=== PATIENT | male | born 1955 | race Caucasian/White ===

== ENCOUNTER 2019-12-07 10:59 | Outpatient (CLI) | payer MEDICARE, OTHER, SELFPAY ==
[2019-12-07 11:31] LABS: Hemoglobin A1C 7.4 % (<5.7)
[2019-12-07 11:34] LABS: Alanine Aminotransferase 18 U/L (4-50); Albumin Level 4.7 g/dL (3.5-5.1); Alkaline Phosphatase 94 U/L (38-126); Aspartate Amino Transferase 20 U/L (17-59); Bilirubin,Total 0.5 mg/dL (0.2-1.3); Blood Urea Nitrogen 16 mg/dL (9-20); Calcium 9.6 mg/dL (8.4-10.2); Carbon Dioxide 23 mmol/L (22-30); Chloride 95 mmol/L (98-107); Estimated Glomerular Filt Rate > 60; Glucose 332 mg/dL (75-110); Sodium 134 mmol/L (137-145)
== END 2019-12-07 11:00 | disposition home or self-care (01) ==
PROVIDERS: PCP Family Medicine; Visit Provider Family Medicine
DX: E11.9 Type 2 diabetes mellitus without complications (principal)
CPT/HCPCS: 36415; 80053; 83036

== ENCOUNTER 2020-04-19 09:52 | Outpatient (CLI) | payer MEDICARE, OTHER, SELFPAY ==
[2020-04-19 10:24] LABS: Hematocrit 47.1 % (42.0-52.0); Hemoglobin 15.4 g/dL (14.0-18.0); Mean Corpuscular HGB Conc 32.7 g/dl (32-36); Mean Corpuscular Hemoglobin 28.1 pg (26-34); Mean Corpuscular Volume 85.8 fl (80-100); Mean Platelet Volume 10.2 fl (7.4-10.4); Platelet Count Result 198 k/mm3 (150-375); Red Blood Count 5.49 M/mm3 (4.6-6.20); White Blood Count 7.3 K/mm3 (4.5-10.0)
[2020-04-19 10:44] LABS: Alanine Aminotransferase 17 U/L (4-50); Albumin Level 4.5 g/dL (3.5-5.1); Alkaline Phosphatase 80 U/L (38-126); Aspartate Amino Transferase 22 U/L (17-59); Bilirubin,Total 0.4 mg/dL (0.2-1.3); Blood Urea Nitrogen 17 mg/dL (9-20); Calcium 9.5 mg/dL (8.4-10.2); Carbon Dioxide 23 mmol/L (22-30); Chloride 102 mmol/L (98-107); Cholesterol 118 mg/dL (0-200); Estimated Glomerular Filt Rate > 60; Glucose 120 mg/dL (75-110); HDL Direct 37 mg/dL; Potassium 4.9 mmol/L (3.4-5.0); Sodium 136 mmol/L (137-145); Triglycerides 167 mg/dL (<150)
[2020-04-19 10:50] LABS: Hemoglobin A1C 7.7 % (<5.7)
[2020-04-19 11:05] LABS: LDL Cholesterol Direct 55 mg/dL
[2020-04-19 12:42] LABS: Add Urine Microscopic? YES; Appearance Urine Clear (Clear); Bilirubin Urine Negative (Negative); Blood Urine Negative (Negative); Color Urine Yellow (Yellow); Glucose Urine UA 3+ mg/dL (Negative); Ketones Urine Trace mg/dL (Negative); Leukocyte Esterase Ur Negative LEU/UL (NEGATIVE); Mucus Urine Rare /lpf; Nitrate Urine Negative (Negative); Protein Urine Negative (Negative); RBC Urine 0-2 /hpf (0-2); Squamous Epithelial Cell Urine Rare /hpf (Few); Urobilinogen Urine Negative mg/dL (<2.0); WBC Urine 0-3 /hpf (0-3)
[2020-04-19 12:51] LABS: Specific Grav Ur 1.036 (1.001-1.035)
[2020-04-19 13:12] LABS: Creatinine Urine 144.7 mg/dL
[2020-04-19 13:17] LABS: MALB Creatinine Ratio 7.1 mg/g (0-30); Microalbumin Urine Random 10.3 mg/L (0-16.7)
== END 2020-04-19 09:53 | disposition home or self-care (01) ==
PROVIDERS: PCP Family Medicine; Visit Provider Family Medicine
DX: E78.2 Mixed hyperlipidemia (principal); E11.9 Type 2 diabetes mellitus without complications; R35.1 Nocturia
CPT/HCPCS: 36415; 80053; 80061; 81001; 82043; 83036; 84153; 84443; 85027

== ENCOUNTER 2020-09-05 13:49 | Outpatient (CLI) | payer MEDICARE, OTHER, SELFPAY ==
[2020-09-05 14:59] LABS: Alanine Aminotransferase 28 U/L (4-50); Albumin Level 4.7 g/dL (3.5-5.1); Alkaline Phosphatase 75 U/L (38-126); Anion Gap 11 mmol/L (8-16); Aspartate Amino Transferase 28 U/L (17-59); Bilirubin,Total 0.6 mg/dL (0.2-1.3); Blood Urea Nitrogen 14 mg/dL (9-20); Calcium 9.8 mg/dL (8.4-10.2); Carbon Dioxide 28 mmol/L (22-30); Chloride 98 mmol/L (98-107); Estimated Glomerular Filt Rate > 60; Glucose 116 mg/dL (75-110); Potassium 4.3 mmol/L (3.4-5.0); Sodium 137 mmol/L (137-145)
[2020-09-05 15:03] LABS: Hemoglobin A1C 8.2 % (<5.7)
== END 2020-09-05 13:50 | disposition home or self-care (01) ==
PROVIDERS: PCP Family Medicine; Visit Provider Family Medicine
DX: E11.9 Type 2 diabetes mellitus without complications (principal)
CPT/HCPCS: 36415; 80053; 83036

== ENCOUNTER 2020-09-27 08:15 | Outpatient (CLI) | payer MEDICARE, OTHER, SELFPAY ==
--- NOTE | ~2020-09-27 | CT_ITS ---
EXAMINATION: CT lung screening DATE: 09/27/2020 09:14 INDICATION: History of tobacco dependence TECHNIQUE: Computed tomography (CT) of the chest was performed without intravenous contrast. The dose -length product was 269.82 mGy-cm. Automated exposure control and iterative reconstruction technique were employed. COMPARISON: CT dated 01/29/2019 FINDINGS: There is emphysema. There is a stable 3 mm right lower lobe nodule, image 90. No endobronch ial lesions. No pneumothorax. There is a 3 mm right middle lobe nodule, image 83. There is a 2-3 mm f issural nodule on the right, image 59. No significant interval change. Calcified granuloma of the nicole gula. There is atherosclerosis of the aorta and coronary arteries. Heart size normal. No significant pleural or pericardial effusion. The upper abdomen is unremarkable. IMPRESSION: 1. Lung-RADS category 2: Benign appearance or behavior. Continue annual screening with noncontrast lo w-dose chest CT in 12 months. Reviewed, dictated and finalized at location A. TRIC TRAIN DRIVER IMPRESSION: 1. Lung-RADS category 2: Benign appearance or behavior. Continue annual screeni ng with noncontrast low-dose chest CT in 12 months.
--- NOTE | ~2020-09-27 | US_ITS ---
EXAMINATION: US art doppler w press UE BI DATE: 09/27/2020 09:17 TIRE ROOM SUPERVISOR INDICATION: Localized swelling of the upper extremities TECHNIQUE: Segmental pressures and plethysmographic and Doppler waveforms of the upper extremity rachel sarah were obtained. COMPARISON: None. FINDINGS: Right and left brachial artery pressures of 117 mm Hg and 1:15 mm Hg, respectively, are concordant (n ormal difference <= 30 mmHg). The right finger:brachial systolic pressure ratio is 1.14 (normal > 0.8 ). Segmental pressure gradients are normal. Arterial Doppler waveforms are mixed biphasic and triphas ic (normal upstroke < 0.2 s). The left finger:brachial systolic pressure ratio is 1.05. Segmental pressure gradients are normal. Ar terial Doppler waveforms are biphasic. IMPRESSION: 1. Unremarkable upper extremity arterial Doppler. Reviewed, dictated and finalized at location A. ROOM SUPERVISOR
--- NOTE | ~2020-09-27 | US_ITS ---
EXAMINATION: US aorta [facility] DATE: 09/27/2020 09:16 MANAGER WORK INDICATION: Aortic aneurysm screening. High cholesterol. Past history of smoking. TECHNIQUE: Grayscale, color Doppler, and pulsed Doppler images of the aorta and common iliac arteries were obtained. COMPARISON: None. FINDINGS: The proximal aorta measures 2.6 cm greatest sagittal dimension. The mid aorta measures 2.7 cm greates t sagittal dimension. The distal aorta measures 3.1 cm greatest sagittal dimension. The right common internal iliac artery measures 1.1 cm. The left common iliac artery measures 1 cm. IMPRESSION: 1. Infrarenal abdominal aortic aneurysm measuring 3.1 cm greatest sagittal dimension. Reviewed, dictated and finalized at location A. GER WORK IMPRESSION: 1. Infrarenal abdominal aortic aneurysm measuring 3.1 cm greatest sagittal dime nsion.
== END 2020-09-27 08:16 | disposition home or self-care (01) ==
PROVIDERS: PCP Family Medicine; Visit Provider Family Medicine
DX: Z12.2 Encounter for screening for malignant neoplasm of respiratory organs (principal); Z87.891 Personal history of nicotine dependence; Z13.6 Encounter for screening for cardiovascular disorders; I71.4 Abdominal aortic aneurysm, without rupture; E78.00 Pure hypercholesterolemia, unspecified; M79.89 Other specified soft tissue disorders
CPT/HCPCS: 76706; 93923; G0297

== ENCOUNTER 2020-12-29 14:49 | Outpatient (CLI) | payer MEDICARE, OTHER, SELFPAY ==
[2020-12-29 15:47] LABS: Alanine Aminotransferase 25 U/L (4-50); Albumin Level 4.6 g/dL (3.5-5.1); Alkaline Phosphatase 73 U/L (38-126); Anion Gap 8 mmol/L (8-16); Aspartate Amino Transferase 27 U/L (17-59); Bilirubin,Total 0.5 mg/dL (0.2-1.3); Blood Urea Nitrogen 15 mg/dL (9-20); Calcium 9.6 mg/dL (8.4-10.2); Carbon Dioxide 29 mmol/L (22-30); Chloride 103 mmol/L (98-107); Estimated Glomerular Filt Rate > 60; Glucose 110 mg/dL (75-110); Potassium 3.8 mmol/L (3.4-5.0); Sodium 140 mmol/L (137-145)
[2020-12-29 15:56] LABS: Hemoglobin A1C 7.8 % (<5.7)
== END 2020-12-29 14:50 | disposition home or self-care (01) ==
PROVIDERS: PCP Family Medicine; Visit Provider Family Medicine
DX: E11.9 Type 2 diabetes mellitus without complications (principal)
CPT/HCPCS: 36415; 80053; 83036

== ENCOUNTER 2021-01-09 09:31 | Outpatient (CLI) | payer MEDICARE, OTHER, SELFPAY ==
--- NOTE | ~2021-01-09 | US_ITS ---
EXAMINATION: US carotid duplex BI DATE: 01/09/2021 10:00 INDICATION: Transient ischemic attack. TECHNIQUE: Grayscale, color Doppler, and pulsed Doppler images of the cervical carotid arteries were obtained. The degree of vessel stenosis is placed in one of the following categories: normal, <50%, 5 0-69%, >=70% but less than near-occlusion, near-occlusion, or total occlusion. Note that percent sten osis relative to normal distal artery lumen diameter is indirectly measured from velocity measurement s as described by Zenon, et al. Radiology 2003; 229:340-346. COMPARISON: Neck CT 08/28/2017 FINDINGS: RIGHT: The right common carotid artery (CCA) peak systolic velocity (PSV) is 82 cm/s. The right internal car otid artery (ICA) PSV is 52 cm/s. The right ICA end-diastolic velocity (EDV) is 17 cm/s. The right IC A/CCA PSV ratio is 0.6. Grayscale and color Doppler images yield an estimate of <50% diameter reducti on from plaque in the ICA. There is antegrade flow in the right vertebral artery. LEFT: The left CCA PSV is 79 cm/s. The left ICA PSV is 58 cm/s. The left ICA EDV is 16 cm/s. The left ICA/C CA PSV ratio is 0.7. Grayscale and color Doppler images yield an estimate of <50% diameter reduction from plaque in the ICA. There is antegrade flow in the left vertebral artery. IMPRESSION: 1. <50% stenosis in the right internal carotid artery. 2. <50% stenosis in the left internal carotid artery. Reviewed, dictated and finalized at location A. IC ORIGINS TEACHER
--- NOTE | ~2021-01-09 | CT_ITS ---
EXAMINATION: CT brain wo con DATE: 01/09/2021 10:00 INDICATION: Transient ischemic attack. TECHNIQUE: Computed tomography (CT) of the head was performed without intravenous contrast. The mA wa s adjusted according to patient size. Iterative reconstruction technique was employed. The dose-lengt h product was 605.33 mGy-cm. COMPARISON: None FINDINGS: There is no intracranial hemorrhage, acute infarction, or abnormal intracranial mass lesion . The ventricles are normal in size. There are likely changes of ocular lens replacement surgeries. T here is mucosal thickening in the paranasal sinuses. The mastoid air cells are normal. IMPRESSION: 1. Normal brain. Reviewed, dictated and finalized at location A. IC CUTTER IMPRESSION: 1. Normal brain.
== END 2021-01-09 09:32 | disposition home or self-care (01) ==
PROVIDERS: PCP Family Medicine; Visit Provider Family Medicine
DX: I65.23 Occlusion and stenosis of bilateral carotid arteries (principal)
CPT/HCPCS: 70450; 93880

== ENCOUNTER → 2021-02-06 00:21 | Outpatient (CLI) | payer MEDICARE, OTHER, SELFPAY ==
[2021-02-06 19:29] LABS: SARS-CoV-2 RNA PCR Negative
== END ==
PROVIDERS: PCP Family Medicine; Visit Provider Internal Medicine Cardiovascular Disease
DX: Z01.812 Encounter for preprocedural laboratory examination (principal); Z20.822 Contact with and (suspected) exposure to COVID-19
CPT/HCPCS: C9803; U0003; U0005

== ENCOUNTER 2021-02-09 01:29 | Day surgery (SDC) | payer MEDICARE, OTHER, SELFPAY ==
[2021-02-08 08:59] VITALS: BMI 31.6
[2021-02-09] VITALS (10 sets, daily range): BP systolic 107–147; BP diastolic 71–89; PULSE 80–92; RESP 11–17; TEMP 36.3–36.5; O2SAT 89–96; BMI 31.3
--- NOTE | 2021-02-09 07:59 | SUR.PREOP ---
Patient arrives ambulatory to [facility] accompanied by his , Heydi. PIV established and labs obtained and sent. VS obtained. Patient updated on plan of care and verbalizes understanding.
[2021-02-09 08:00] LABS: Basophils Absolute Auto 0.1 K/mm3 (0.0-0.1); Basophils Percent Auto 0.7 % (0.2-1.2); Eosinophils Absolute Auto 0.4 K/mm3 (0-0.3); Eosinophils Percent Auto 3.6 % (0-4.4); Hematocrit 50.7 % (42.0-52.0); Immature Granulocyte Absolute 0.07 K/mm3 (0.00-0.031); Immature Granulocyte Percent A 0.7 % (0-0.5); Lymphocytes Absolute Auto 1.68 K/mm3 (0.9-3.2); Lymphocytes Percent Auto 15.8 % (18.3-44.2); Mean Corpuscular HGB Conc 33.5 g/dl (32-36); Mean Corpuscular Hemoglobin 28.9 pg (26-34); Mean Corpuscular Volume 86.1 fl (80-100); Mean Platelet Volume 10.2 fl (7.4-10.4); Monocytes Absolute Auto 0.6 K/mm3 (0.1-0.6); Monocytes Percent Auto 5.2 % (2.6-8.5); Neutrophils Absolute Auto 7.9 K/mm3 (1.3-6.7); Platelet Count Result 198 k/mm3 (150-375); Red Blood Count 5.89 M/mm3 (4.6-6.20); Red Cell Distribution Width 14.3 % (11.5-14.5); White Blood Count 10.6 K/mm3 (4.5-10.0)
[2021-02-09 08:12] LABS: Anion Gap 14 mmol/L (8-16); Blood Urea Nitrogen 18 mg/dL (9-20); Carbon Dioxide 19 mmol/L (22-30); Chloride 104 mmol/L (98-107); Estimated CRCL calculation 93 ml/min; Estimated Glomerular Filt Rate > 60; Glucose 224 mg/dL (75-110); Potassium 4.3 mmol/L (3.4-5.0); Sodium 137 mmol/L (137-145)
[2021-02-09 08:14] LABS: INR 0.9; Prothrombin Time 12.7 Seconds (11.1-14.7)
--- NOTE | 2021-02-09 09:37 | WPDHPUPDATE1 ---
History and Physical Update Update Date/Time: 02/09/21 08:00 History and Physical has been reviewed, including an updated exam of the patient. There are NO changes in the patient's condition. Risks, benefits, and alternatives have been discussed and questions answered. Patient agrees to proceed with procedure.
--- NOTE | 2021-02-09 09:37 | WPDMODSED ---
Moderate Sedation Note-Pt Data Patient Data Allergies Allergy/AdvReac Type Severity Reaction Status Date / Time doxycycline [From Vibramycin] Allergy Unknown Rash Verified 02/09/21 08:03 erythromycin base Allergy Unknown Rash Verified 02/09/21 08:03 Home Medications Medication Instructions Recorded Confirmed Type albuterol sulfate 90 mcg/actuation 1 puff INHALATION Q4H PRN 12/22/19 02/08/21 History aerosol inhaler sildenafil 100 mg tablet 100 mg PO DAILY PRN 12/22/19 02/08/21 History exenatide microspheres 2 mg/0.85 2 mg SUB-Q Q7D #12 syr 05/10/20 02/08/21 Rx mL subcutaneous auto-injector fluticasone fur. 100 mcg-umeclid 1 inhalation INHALATION DAILY #90 05/10/20 02/08/21 Rx 62.5 mcg-vilant 25 mcg each inhalat.powder glipizide 10 mg tablet 10 mg PO DAILY #90 tablet 10/25/20 02/08/21 Rx empagliflozin 25 mg tablet 25 mg PO DAILY #90 tablet 11/01/20 02/08/21 Rx tamsulosin 0.4 mg capsule 0.4 mg PO DAILY #90 cap 11/01/20 02/08/21 Rx omeprazole 20 mg capsule,delayed 20 mg PO DAILY #90 cap 11/22/20 02/08/21 Rx release fluoxetine 40 mg capsule 40 mg PO QAM #90 cap 12/28/20 02/08/21 Rx rosuvastatin 20 mg tablet 20 mg PO DAILY #90 tablet 01/04/21 02/08/21 Rx metformin 500 mg tablet,extended 2,000 mg PO QPM #360 tablet 01/12/21 02/08/21 Rx release 24 hr ibuprofen 800 mg PO TID PRN 02/08/21 02/08/21 History Current Medications: Active Medications Sodium Chloride (Normal Saline Iv) 500 mls @ 100 mls/hr IV CONT .Q5H DAVID Sedation/Anesthesia: No previous sedation/anesthesia problems (including family history). REPLACED BY [facility] Past Medical History Medical History AAA (abdominal aortic aneurysm) Surgical History Surgical History History of sinus surgery x 3 Family History Family History Sibling Family history of diabetes mellitus in first degree relative Father Family history of throat cancer Social History Social History Smoking packs per day: 2.5 Smoking cigarettes per day: 50.0 Years smoked: 35 Smoking pack-years: 87.50 Smoking status: Former smoker Tobacco type: cigarettes Second hand tobacco smoke exposure: No Smoking end date: 11/04/05 Additional smoking assessment comments: stopped 12 years ago. Smoked 35 years. Alcohol intake: current Drinks per week: 1 Alcohol use details: Occasional alcohol use Substance use: current Substance use type: marijuana Other substance usage details: THC Living arrangements: with family Gender identity (if verbalized by the patient): Male Spiritual care concerns: No Mod Sed Physical Exam Physical Exam Pre Procedural Exam: Normal: Appearance, Eyes, Ears, Nose, Neck, Throat, Airway, Lungs, Heart Size, Heart Rate, Heart Rhythm, Neuro Exam, Abdomen, Liver, Kidneys, Spleen, Breasts, Genitalia, Extremities and Skin Hours since solid foods: 8 Hours since liquid intake: 8 Internal Medicine - PN: Obj Da Vital Signs Vital Signs: Vital Signs - 24 hr 02/09/21 07:45 Temperature 36.3 C L Pulse Rate 92 Respiratory Rate 17 Blood Pressure 132/87 Pulse Oximetry 96 Meds/Results Medications: Active Medications Generic Name Dose Route Start Last Admin Trade Name Freq PRN Reason Stop Dose Admin Sodium Chloride 500 mls @ 100 mls/hr 02/09/21 07:00 Normal Saline Iv IV CONT .Q5H DAVID Labs CBC & Chem 7: 02/09/21 07:37 02/09/21 07:37 Labs: Laboratory Results - last 24 hr 02/09/21 02/09/21 02/09/21 07:37 07:37 07:37 WBC 10.6 H RBC 5.89 Hgb 17.0 Hct 50.7 MCV 86.1 MCH 28.9 MCHC 33.5 RDW 14.3 Plt Count 198 MPV 10.2 Immature Gran % (Auto) 0.7 H Neut % (Auto) 74.0 H Lymph % (Auto) 15.8 L [place] % (Auto) 5.2 Eos % (Auto) 3.6 B
--- NOTE | 2021-02-09 09:38 | WPDCARDPROC ---
Cardiac Cath Procedure Note Date of procedure:: 02/09/21 Performing physician:: Savannah Ramirez MD Date of service 02/09/2021- Indication:: chest pain stress test Brief clinical history:: this 65-year-old patient past medical history diabetes, hypertension who experienced an episode of severe chest pain is felt to be myocardial infarction. Underwent stress testing that shows fixed defect in the inferior wall. Due to abnormality in stress test he was brought in here to define coronary anatomy. Procedure Procedure performed:: 1-Moderate sedation that started at 9:18 a.m.and ended at 9:33 a.m.using 3mg of Versed and 50mcg fentanyl. The registered nurse was ward doe. 2-Selective left and right coronary angiogram. 3-Left heart catheterization with measurement of LVEDP and measurement of gradient across aortic valve. 4- LV angiogram. 4-Right common femoral arterial angiogram. 5-Deployment of 6 Nauruan Angio-Seal. Sedation/Medication given:: Moderate sedation. Access site:: Right common femoral artery. Estimated blood loss:: 10cc Procedure note:: After informed consent patient was brought in to phlebotomist medical lab assistant with the was draped and prepped in usual manner. Moderate sedation was given and the right groin was infiltrated using 1% lidocaine. Five Nauruan sheath was obtained using micropuncture needle and the modified Seldinger technique. Selective left coronary angiogram was done using JL4 catheter with the tip of the catheter placed in the left main coronary artery. Selective right coronary angiogram was done using JR4 catheter with the tip of the catheter placed to the right coronary artery. After that 5 Nauruan pigtail catheter was advanced across the aortic valve into the left ventricle with measurement of LVEDP and measurement of gradient across aortic valve. LV angiogram was done as well. Right common femoral arterial angiogram was done. Deployment 6 [place]auruan Angio-Seal Findings:: 1- left coronary artery is a large artery that divides into large LAD, large circumflex artery. Left main distally has 20%. 2- left anterior descending artery is a large artery that runs and wraps around the apex. Has diffuse minimal irregularities. Small diagonal 1 branch that has minimal irregularities. 3- leftcircumflex artery is a large artery With minimal irregularities. Large OM1 a minimal irregularities. 4- right coronary artery is Very large artery with minimal irregularities 5- LVEDP was 15 mm Hg and no gradient across aortic valve. 6- LV angiogram shows normal LV systolic function. Normal ascending aorta. Estimated ejection fraction 65%. 6- opening arterial pressure was 128/70tand closing pressure was 110/70 7- right femoral artery angiogram shows no significant disease in the right common femoral artery. Conclusion:: minimal coronary irregularities. False-positive stress test. Assessment and Plan Additional Plan Continue aggressive risk factor modification for CAD.
--- NOTE | 2021-02-09 13:04 | SUR.PHASEII ---
LILY Kidd went through discharge paperwork with patient. Patient verbalized understanding. Patient was escorted off the unit by wheelchair.
== END 2021-02-09 13:04 | disposition home or self-care (01) ==
PROVIDERS: PCP Family Medicine; Visit Provider Internal Medicine Cardiovascular Disease
PROC: 4A023N7 Measurement of Cardiac Sampling and Pressure, Left Heart, Percutaneous Approach (ICD-10-PCS; CPT 93452; principal; 2021-02-09 09:00)
DX: R94.39 Abnormal result of other cardiovascular function study (principal); R07.9 Chest pain, unspecified; I25.10 Atherosclerotic heart disease of native coronary artery without angina pectoris; I71.4 Abdominal aortic aneurysm, without rupture; E11.9 Type 2 diabetes mellitus without complications; E78.2 Mixed hyperlipidemia; J44.9 Chronic obstructive pulmonary disease, unspecified; G47.30 Sleep apnea, unspecified; I25.2 Old myocardial infarction; F41.8 Other specified anxiety disorders; M19.90 Unspecified osteoarthritis, unspecified site; F12.90 Cannabis use, unspecified, uncomplicated; Z79.51 Long term (current) use of inhaled steroids; Z79.84 Long term (current) use of oral hypoglycemic drugs; Z87.891 Personal history of nicotine dependence
CPT/HCPCS: 36415; 80048; 85025; 85610; 93458; C1760; C1887; C1894; G0269; J1644; J2250; J3010; J7040

== ENCOUNTER 2021-05-03 15:24 | Outpatient (CLI) | payer MEDICARE, OTHER, SELFPAY ==
[2021-05-03 15:46] LABS: Hemoglobin 16.9 g/dL (14.0-18.0); Mean Corpuscular HGB Conc 33.1 g/dl (32-36); Mean Corpuscular Hemoglobin 28.7 pg (26-34); Mean Corpuscular Volume 86.7 fl (80-100); Mean Platelet Volume 10.5 fl (7.4-10.4); Platelet Count Result 199 k/mm3 (150-375); Red Blood Count 5.88 M/mm3 (4.6-6.20); Red Cell Distribution Width 13.8 % (11.5-14.5); White Blood Count 8.2 K/mm3 (4.5-10.0)
[2021-05-03 15:53] LABS: Add Urine Microscopic? YES; Appearance Urine Clear (Clear); Bilirubin Urine Negative (Negative); Blood Urine Negative (Negative); Color Urine Yellow (Yellow); Glucose Urine UA 3+ mg/dL (Negative); Ketones Urine 1+ mg/dL (Negative); Leukocyte Esterase Ur Negative LEU/UL (NEGATIVE); Mucus Urine Rare /lpf; Nitrate Urine Negative (Negative); Protein Urine Negative (Negative); RBC Urine 0-2 /hpf (0-2); Squamous Epithelial Cell Urine Rare /hpf (Few); Urobilinogen Urine Negative mg/dL (<2.0); WBC Urine 0-3 /hpf (0-3)
[2021-05-03 15:56] LABS: Specific Grav Ur 1.036 (1.001-1.035)
[2021-05-03 15:57] LABS: Alanine Aminotransferase 26 U/L (4-50); Albumin Level 4.8 g/dL (3.5-5.1); Alkaline Phosphatase 71 U/L (38-126); Anion Gap 10 mmol/L (8-16); Aspartate Amino Transferase 29 U/L (17-59); Bilirubin,Total 0.8 mg/dL (0.2-1.3); Blood Urea Nitrogen 13 mg/dL (9-20); Calcium 9.7 mg/dL (8.4-10.2); Carbon Dioxide 25 mmol/L (22-30); Chloride 104 mmol/L (98-107); Cholesterol 106 mg/dL (0-200); Estimated Glomerular Filt Rate > 60; Glucose 119 mg/dL (75-110); HDL Direct 36 mg/dL; Potassium 4.3 mmol/L (3.4-5.0); Sodium 139 mmol/L (137-145); Triglycerides 122 mg/dL (<150)
[2021-05-03 15:58] LABS: Hemoglobin A1C 8.4 % (<5.7)
[2021-05-03 16:08] LABS: LDL Cholesterol Direct 49 mg/dL
[2021-05-03 16:15] LABS: Creatinine Urine 100.1 mg/dL
[2021-05-03 16:19] LABS: MALB Creatinine Ratio 11.4 mg/g (0-30); Microalbumin Urine Random 11.4 mg/L (0-16.7)
[2021-05-03 16:27] LABS: Prostate Specific Antigen 0.7 ng/mL (< OR = 4.0)
== END 2021-05-03 15:25 | disposition home or self-care (01) ==
PROVIDERS: PCP Family Medicine; Visit Provider Family Medicine
DX: E11.42 Type 2 diabetes mellitus with diabetic polyneuropathy (principal); E11.65 Type 2 diabetes mellitus with hyperglycemia; E78.00 Pure hypercholesterolemia, unspecified; R35.1 Nocturia
CPT/HCPCS: 36415; 80053; 80061; 81001; 82043; 83036; 84153; 84443; 85027

== ENCOUNTER 2021-09-12 11:10 | Outpatient (CLI) | payer MEDICARE, OTHER, SELFPAY ==
[2021-09-12 12:13] LABS: Alanine Aminotransferase 31 U/L (4-50); Alkaline Phosphatase 73 U/L (38-126); Anion Gap 14 mmol/L (8-16); Aspartate Amino Transferase 39 U/L (17-59); Blood Urea Nitrogen 14 mg/dL (9-20); Carbon Dioxide 26 mmol/L (22-30); Chloride 101 mmol/L (98-107); Estimated Glomerular Filt Rate > 60; Glucose 149 mg/dL (65-110); Potassium 4.3 mmol/L (3.4-5.0); Sodium 141 mmol/L (137-145)
== END 2021-09-12 11:11 | disposition home or self-care (01) ==
LOC: ANHLAB 11:15
PROVIDERS: PCP Family Medicine; Visit Provider Family Medicine
DX: E11.42 Type 2 diabetes mellitus with diabetic polyneuropathy (principal); E11.65 Type 2 diabetes mellitus with hyperglycemia
CPT/HCPCS: 36415; 80053; 83036

== ENCOUNTER 2022-01-24 11:15 | Outpatient (CLI) | payer MEDICARE, OTHER, SELFPAY ==
[2022-01-24 12:31] LABS: Alanine Aminotransferase 14 U/L (4-50); Albumin Level 4.3 g/dL (3.5-5.1); Alkaline Phosphatase 103 U/L (38-126); Anion Gap 11 mmol/L (8-16); Aspartate Amino Transferase 22 U/L (17-59); Bilirubin,Total 0.5 mg/dL (0.2-1.3); Blood Urea Nitrogen 14 mg/dL (9-20); Calcium 9.1 mg/dL (8.4-10.2); Carbon Dioxide 25 mmol/L (22-30); Chloride 102 mmol/L (98-107); Estimated Glomerular Filt Rate > 60; Glucose 139 mg/dL (65-110); Potassium 4.1 mmol/L (3.4-5.0); Sodium 138 mmol/L (137-145)
[2022-01-24 12:34] LABS: Hemoglobin A1C 7.1 % (<5.7)
== END 2022-01-24 11:16 | disposition home or self-care (01) ==
LOC: ANHLAB 11:18
PROVIDERS: PCP Family Medicine; Visit Provider Family Medicine
DX: E11.65 Type 2 diabetes mellitus with hyperglycemia (principal)
CPT/HCPCS: 36415; 80053; 83036

== ENCOUNTER 2022-02-06 12:52 | Outpatient (CLI) | payer MEDICARE, OTHER, SELFPAY ==
--- NOTE | ~2022-02-06 | CT_ITS ---
EXAMINATION:CT lung screening DATE: 02/06/2022 13:15 INDICATION: Encounter for screening for malignant neoplasm of respiratory organs. Smoker who quit 12 years ago with 30 pack year history. TECHNIQUE: Computed tomography (CT) of the chest was performed without intravenous contrast. Automate d exposure control and iterative reconstruction technique were employed. The dose-length product (DLP ) was 363.09 mGy-cm. COMPARISON: Chest CT 09/27/2020 FINDINGS: There is severe emphysema. There is new widespread peripheral septal thickening in the lung s with new widespread groundglass opacities. There are new bandlike airspace opacities in the upper l obes with volume loss. There is a new 10 mm nodule in right upper lobe. No pleural effusion. The hear t size is stable. There are coronary artery calcifications. No pericardial effusion. There is mild me diastinal lymphadenopathy. A right paratracheal node measures 13 x 14 mm. There is mild thoracic spon dylosis. IMPRESSION: 1. Lung-RADS category 4B: Very suspicious. The diffuse nature of the worsened lung disease suggests p neumonia superimposed on severe emphysema. Noncontrast, low-dose chest CT is recommended in 1 month. Reviewed, dictated and finalized at location A. IMPRESSION: 1. Lung-RADS category 4B: Very suspicious. The diffuse nature of the worsened l caity disease suggests pneumonia superimposed on severe emphysema. Noncontrast, l ow-dose chest CT is recommended in 1 month.
== END 2022-02-06 12:53 | disposition home or self-care (01) ==
PROVIDERS: PCP Family Medicine; Visit Provider Family Medicine
DX: Z12.2 Encounter for screening for malignant neoplasm of respiratory organs (principal); Z87.891 Personal history of nicotine dependence
CPT/HCPCS: 71271

== ENCOUNTER 2022-02-12 16:52 | Inpatient (IN) | payer MEDICARE, OTHER, SELFPAY ==
[2022-02-12] VITALS (12 sets, daily range): BP systolic 103–121; BP diastolic 52–79; PULSE 82–90; RESP 14–20; TEMP 36.2–36.3; O2SAT 85–96; BMI 31.2
--- NOTE | ~2022-02-12 | XR_ITS ---
EXAMINATION: XR chest 2V DATE: 02/12/2022 17:23 INDICATION: Shortness of breath. TECHNIQUE: Frontal and lateral views of the chest were obtained. COMPARISON: Chest CT 02/06/2022, 09/27/20 FINDINGS: There are lucencies in the lungs, consistent with emphysema. There are widespread reticular opacities in the lungs with a peripheral predominance. There is architectural distortion in the uppe r lobes. There is a subcentimeter nodule in left upper lobe. No pleural effusion or pneumothorax. The heart size is normal. IMPRESSION: 1. Diffuse lung disease with worsening from 09/27/2020, which may be pneumonia, pulmonary edema, and/ or worsened chronic lung disease superimposed on emphysema. Reviewed, dictated and finalized at location A. IMPRESSION: 1. Diffuse lung disease with worsening from 09/27/2020, which may be pneumonia, pulmonary edema, and/or worsened chronic lung disease superimposed on emphysem a.
--- NOTE | 2022-02-12 17:16 | ECG_ITS ---
Measurements Intervals Philip Rate: 90 P: 48 FL: 158 QRS: 15 QRSD: 104 T: 6 QT: 412 QTc: 505 Interpretive Statements SINUS RHYTHM ST AND T-WAVE ABNORMALITY, CONSIDER ANTERIOR ISCHEMIA [-0.1+ mV T WAVE IN V3/V4] ABNORMAL ECG NO PREVIOUS ECG AVAILABLE FOR COMPARISON Electronically Signed On 02-13-2022 17:59:29 CDT by Dameon Reese M.D.
--- NOTE | 2022-02-12 17:37 | ED.SOB ---
HPI - SOB/Dyspnea General Chief Complaint: Shortness of Breath/Dyspnea Stated Complaint: low o2 sats Time Seen by Provider: 02/12/22 17:19 History of Present Illness HPI Narrative: Patient is a 66-year-old male with a history of COPD, ELISE, DM, hx of AAA, who presents to the emergency department for 2 months of exertional dyspnea, productive cough, with some low oxygen saturation noted at home with the past 3 days. He has no home O2 requirement historically, but purchased a pulse oximeter after he was found to be hypoxic at his primary care physician office. His lowest reading was in the 70s when he was exerting himself, and at rest it was in the mid-high 80s. Patient recently completed a course of azithromycin and is still taking a course of Augmentin for suspected pneumonia seen on a low-dose CT scan last week. Has not been taking his rescue inhaler, but has been compliant with Trelegy. He denies any fevers, chest pain, leg swelling, hemoptysis, orthopnea, nighttime awakenings. Related Data Home Medications Medication Instructions Recorded Confirmed [id number] 1 ea INHALATION DAILY 02/12/22 02/12/22 [Trelegy Ellipta] Allergies Allergy/AdvReac Type Severity Reaction Status Date / Time doxycycline [From Vibramycin] Allergy Unknown Rash Verified 02/12/22 17:17 erythromycin base Allergy Unknown Rash Verified 02/12/22 17:17 Review of Systems Review of Systems: Gen.: Denies fevers or chills Eyes: Denies eye pain or visual change ENT: Denies congestion Respiratory: Reports shortness of breath and cough CV: Denies chest pain or palpitations GI: Denies abdominal pain nausea, emesis or diarrhea denies burning, urgency, frequency or hematuria Musculoskeletal: Denies back pain or muscle pain Neuro: Denies numbness, tingling, weakness or focal weakness Skin: Denies rash. Except as documented, all other systems reviewed and negative All systems reviewed & are unremarkable except as noted in HPI and below PMFSH Past Medical History Medical History AAA (abdominal aortic aneurysm) BPH loc w urin obs/LUTS Surgical History Surgical History History of sinus surgery x 3 Family History Family History Sibling Family history of diabetes mellitus in first degree relative Father Family history of throat cancer Social History Social History Smoking packs per day: 2.5 Smoking cigarettes per day: 50.0 Years smoked: 35 Smoking pack-years: 87.50 Smoking status: Former smoker Tobacco type: cigarettes Second hand tobacco smoke exposure: No Smoking end date: 12/17/07 Additional smoking assessment comments: stopped 12 years ago. Smoked 35 years. Alcohol intake: current Drinks per week: 1 Alcohol use details: Occasional alcohol use Substance use: never Substance use type: marijuana Other substance usage details: THC Gender identity (if verbalized by the patient): Male Spiritual care concerns: No Exam Narrative: APPEARANCE: Well appearing, no pain or distress, well-nourished. Head normocephalic and atraumatic. EYES: PERRLA/EOMI, conjunctivae clear NOSE: No nasal drainage EARS: External ear normal in appearance THROAT: Oropharynx is clear. Mucous membranes are moist. NECK: Supple. No adenopathy, no masses. RESPIRATORY: Expiratory wheezes noted in bilateral upper lobes. Airway patent, respirations nonlabored. CARDIOVASCULAR: Regular rate and rhythm without murmurs, rubs, or gallops. ABDOMINAL: Normoactive bowel sounds. Soft, nontender, nondistended. No rebound tenderness or guarding. MUSCULOSKELETAL: Extremities are warm and well-perfused. Moves all extremities well. No edema. NEURO: Normal speech. No focal neurologic deficits. SKIN::
[2022-02-12] MEDS: ALBUTEROL SULFATE NEB 2.5 MG/0.5 ML INH INHALATION ×2 (17:53→23:03)
[2022-02-12 18:02] LABS: Basophils Absolute Auto 0.1 K/mm3 (0.0-0.1); Basophils Percent Auto 0.7 % (0.2-1.2); Eosinophils Absolute Auto 0.2 K/mm3 (0-0.3); Eosinophils Percent Auto 2.2 % (0-4.4); Hematocrit 46.2 % (42.0-52.0); Hemoglobin 14.4 g/dL (14.0-18.0); Immature Granulocyte Absolute 0.08 K/mm3 (0.00-0.031); Immature Granulocyte Percent A 0.7 % (0-0.5); Lymphocytes Absolute Auto 1.09 K/mm3 (0.9-3.2); Mean Corpuscular HGB Conc 31.2 g/dl (32-36); Mean Corpuscular Hemoglobin 27.7 pg (26-34); Mean Corpuscular Volume 88.8 fl (80-100); Mean Platelet Volume 9.8 fl (7.4-10.4); Monocytes Absolute Auto 0.6 K/mm3 (0.1-0.6); Monocytes Percent Auto 5.7 % (2.6-8.5); Neutrophils Absolute Auto 8.8 K/mm3 (1.3-6.7); Neutrophils Percent Auto 80.7 % (45.5-73.1); Platelet Count Result 286 k/mm3 (150-375); Red Cell Distribution Width 14.6 % (11.5-14.5); White Blood Count 10.9 K/mm3 (4.5-10.0)
[2022-02-12 18:15] LABS: Albumin Level 4.1 g/dL (3.5-5.1); Anion Gap 11 mmol/L (8-16); Bilirubin,Total 0.7 mg/dL (0.2-1.3); Blood Urea Nitrogen 14 mg/dL (9-20); Calcium 8.9 mg/dL (8.4-10.2); Carbon Dioxide 24 mmol/L (22-30); Chloride 102 mmol/L (98-107); Estimated CRCL calculation 81 ml/min; Estimated Glomerular Filt Rate > 60; Glucose 127 mg/dL (65-110); Potassium 4.1 mmol/L (3.4-5.0); Sodium 137 mmol/L (137-145)
[2022-02-12 18:21] LABS: NT Pro B Type Natriuretic Pept 441 pg/mL (5-100)
[2022-02-12 18:34] LABS: Alanine Aminotransferase 12 U/L (4-50); Alkaline Phosphatase 95 U/L (38-126); Aspartate Amino Transferase 29 U/L (17-59)
[2022-02-12 18:56] LABS: Troponin I < 0.012 ng/mL (0.000-0.034)
--- NOTE | 2022-02-12 19:32 | PM.IMHP ---
H&P: HPI History of Present Illness Date/Time: 02/12/22 19:32 Chief Complaint: Shortness of breath. Narrative: This is a 66-year-old male with past medical history significant for COPD/emphysema patient is a former smoker, used to smoke 2-1/2 packs of cigarettes for 35 years,, dyslipidemia, benign prostatic hyperplasia, GERD, type 2 diabetes mellitus. Patient presents to the emergency room due to worsening shortness of breath now present with minimal exertion, this has been going on for the last month or so patient did a course of Z-Matthew and just is about to conclude a course of amoxicillin but is still having significant shortness of breath, patient has had also productive cough of yellowish to greenish sputum, patient denies any fevers, rigors or chills, patient has not been able to eat well due to shortness of breath, denies any leg swelling or ankle swelling or pedal swelling no PND or orthopnea, no chest pain, no dizziness no syncope no near-syncope. Patient was saturating in the 70% at home with pulse oximeter home device upon arrival to emergency room patient require 4 L of oxygen by nasal cannula. Preliminary workup was significant for CT of the chest with severe emphysema and superimposed pneumonia. Patient is being admitted for further evaluation, management and treatment. Review of Systems Review of Systems: Shortness of breath, productive cough with sputum yellowish to greenish. Constitutional: Constitutional: Denies chills, Denies excessive sweating, Denies fever(s), Denies malaise, Denies night sweats and Denies weakness Eyes: Eyes: Denies change in vision ENT: Denies dysphagia, Denies nasal congestion, Denies nasal discharge and Denies nasal obstruction Cardiovascular: Cardiovascular: Denies pedal edema, Denies edema, Denies leg edema, Denies lightheadedness, Denies radiating jaw, neck or arm pain and Denies palpitations Respiratory: Respiratory: Reports cough, Reports excessive phlegm production and Reports dyspnea Comments: Yellowish to greenish patient states that is his usual. Gastrointestinal: Gastrointestinal: Denies abdominal pain, Denies dyspepsia, Denies heartburn, Denies diarrhea, Denies nausea and Denies vomiting Genitourinary: Genitourinary: Denies dysuria Musculoskeletal: Musculoskeletal: Denies back pain, Denies arthralgias and Denies joint swelling Integumentary/Breasts: Skin/Breast: Denies rash Neurologic: Denies focal weakness and Denies Sensory deficit (Neuro) Psychiatric: Psychiatric: Reports no additional psychiatric complaints and Reports as per HPI Endocrine: Endocrine: Denies cold intolerance, Denies heat intolerance, Denies polydipsia and Denies palpitations Hematologic/Lymphatic: Hematologic/Lymphatic: Reports no additional hematologic/lymphatic complaints and Reports as per HPI Allergic/Immunologic: Allergic/Immunologic: Reports no additional allergic/immunologic complaints and Reports as per HPI PMFSH Past Medical History Medical History AAA (abdominal aortic aneurysm) BPH loc w urin obs/LUTS Surgical History Surgical History History of sinus surgery x 3 Family History Family History Sibling Family history of diabetes mellitus in first degree relative Father Family history of throat cancer Social History Social History Smoking packs per day: 2.5 Smoking cigarettes per day: 50.0 Years smoked: 35 Smoking pack-years: 87.50 Smoking status: Former smoker Tobacco type: cigarettes Second hand tobacco smoke exposure: No Smoking end date: 12/17/07 Additional smoking assessment comments: stopped 12 years ago. Smoked 35 years. Alcohol intake: current Drinks per week: 1 Alcohol use details: Occasional alcohol use Substance use: never
[2022-02-12] MEDS: methylPREDNISolone SOD SUCC 125 MG VIAL 60 MG IV PUSH (19:41)
[2022-02-12 19:52] LABS: Alveolar/Arterial O2 Gradient 147.7 mmHg; Base Excess ABG -0.3 mEq/l (+/-2.0); Fractional Inspired Oxygen 35 %; HCO3 ABG 22.3 mEq/l (22.0-26.0); Oxygen Content ABG 19.2 %vol (16.0-22.0); Oxygen Saturation ABG 94.3 % (95.0-100.0); Oxyhemoglobin 91.3 % THb (90.0-100.0); PCO2 ABG 31.3 mmHg (35.0-45.0); PO2 ABG 65.5 mmHg (80.0-100.0); PO2 FiO2 Ratio Arterial Blood 1.87 %; pH ABG 7.471 (7.350-7.450)
[2022-02-12 19:53] LABS: Device NASAL CANNULA; Liters per Minute 3.5 LPM; Modified Allen's Test Pass; Site Drawn LEFT RADIAL
[2022-02-12 20:59] LABS: Influenza A QL RT-PCR Negative (Negative); Influenza B QL RT-PCR Negative (Negative); SARS-CoV-2 RNA PCR Negative
--- NOTE | 2022-02-12 22:17 | ADMGEN ---
This patient, Rashel Camilo, was admitted to 3 [facility] Surg Room 311-01. Patient/family oriented to hospital policies and general routines including ID bracelet, bed and alarms, visiting hours, pain management, procedures, bathroom and other care routines, personal items, smoking policy, room service/diet, and visiting hours. Information on how to activate the Rapid Response Team has been discussed. Patient/Family are encouraged to report perceived risks to care and to ask questions if they do not understand what they are told or what they should do.
[2022-02-12] MEDS: IPRATROPIUM BR 0.02% INH SOLN 0.5 MG/2.5 ML VIAL INHALATION (23:02)
[2022-02-12 23:13] LABS: NT Pro B Type Natriuretic Pept 435 pg/mL (5-100)
--- NOTE | 2022-02-12 23:13 | PCRCNOTE ---
Pt is ordered CPAP for home but states that he does not wear it due to dry mouth, despite increasing humidity. Pt states that he does not wish to use one while here. Pt is ordered Q4H nebulizer treatments. When receiving his 00:00 treatment, pt asked not to be woken up for the 04:00 treatment. Pt was advised to let nurse know if he changes his mind.
[2022-02-13] VITALS (20 sets, daily range): BP systolic 102–126; BP diastolic 58–75; PULSE 62–111; RESP 16–21; TEMP 35.8–37; O2SAT 92–99
--- NOTE | 2022-02-13 | ECHO_ITS ---
Patient Info Name: Rashel Camilo Age: 66 years : 1955 Gender: Male Ht: 70 in Wt: 218 lbs BSA: 2.24 m2 HR: 90 bpm BP: 106 / 69 mmHg Heart Rhythm: Sinus Rhythm Technical Quality: Fair Exam Date: 02/13/2022 9:07 AM Exam Location: [facility] Patient Status: Inpatient Admit Date: 02/12/2022 Staff Ordering Physician: Jazmine Moreno MD Welding Machine Setter: Rhianna Ascencio RDCS Attending Provider: Jazmine Moreno MD Referring Physician: Josh NELSON; Exam Type: CA echo doppler color flow Study Info Indications - sob Complete two-dimensional, color flow and Doppler transthoracic echocardiogram is performed. Summary 1. Complete two-dimensional, color flow and Doppler transthoracic echocardiogram is performed. 2. Left ventricular chamber dimension is normal. 3. Left ventricular systolic function is normal, estimated at 65-70%. 4. There is no increased left ventricular wall thickness. 5. The left ventricular diastolic function is grade I diastolic dysfunction. 6. The basal anteroseptal, and mid anteroseptal are hypokinetic. 7. Right ventricular chamber dimension is mildly enlarged. 8. Right ventricular systolic function is reduced. 9. RV apex is severely hypokinetic. 10. Left atrial chamber dimension is mildly enlarged. 11. There is mild tricuspid valve regurgitation. 12. There is mild pulmonic regurgitation. Left Ventricle Left ventricular chamber dimension is normal. Left ventricular systolic function is normal, estimated at 65-70%. There is no increased left ventricular wall thickness. The left ventricular diastolic function is grade I diastolic dysfunction. The basal anteroseptal, and mid anteroseptal are hypokinetic. All other aguirre appear normal. Right Ventricle Right ventricular chamber dimension is mildly enlarged. Right ventricular systolic function is reduced. RV apex is severely hypokinetic. Left Atria Left atrial chamber dimension is mildly enlarged. Right Atria Right atrial chamber dimension is normal. Atrial Septum Intact interatrial septum visualized by color flow imaging. Aortic Valve The aortic valve is trileaflet. There is no aortic valve sclerosis. There is no aortic valve stenosis. There is trace aortic valve regurgitation. Pulmonic Valve The pulmonic valve is normal. There is no pulmonic valve stenosis. There is mild pulmonic regurgitation. Mitral Valve The mitral valve has normal leaflets. There is no mitral valve stenosis. There is trace mitral valve regurgitation. Tricuspid Valve The tricuspid valve leaflets are normal. There is no significant tricuspid valve stenosis. There is mild tricuspid valve regurgitation. No pulmonary hypertension, estimated pulmonary arterial systolic pressure is 29 mmHg. Pericardium/Pleural The pericardium appears normal. There is no pericardial effusion. Inferior Vena Cava Normal inferior vena cava with >50% collapse upon inspiration consistent with elevated right atrial pressure, 10 mmHg. Aorta The aortic root size at the sinus of Valsalva is borderline dilated. Left Ventricular Outflow Tract Name Value Normal LVOT 2D LVOT Diameter 2.5 cm LVOT
[2022-02-13 07:37] LABS: Glucose Point of Care 134 mg/dl (65-105)
[2022-02-13] MEDS: predniSONE 20 MG TABLET 40 MG PO (08:13)
[2022-02-13] MEDS: TAMSULOSIN HCL 0.4 MG CAPSULE 0.8 MG PO (08:13)
[2022-02-13] MEDS: PANTOPRAZOLE 40 MG TABLET PO (08:14)
[2022-02-13] MEDS: FLUoxetine HCL 20 MG CAPSULE 40 MG PO (08:14)
[2022-02-13] MEDS: ROSUVASTATIN 10 MG TABLET 20 MG PO (08:14)
[2022-02-13] MEDS: ALBUTEROL SULFATE NEB 2.5 MG/0.5 ML INH INHALATION ×4 (08:45→23:20)
[2022-02-13] MEDS: IPRATROPIUM BR 0.02% INH SOLN 0.5 MG/2.5 ML VIAL INHALATION ×4 (08:45→23:20)
[2022-02-13] MEDS: FLUTICASONE/UMECLIDIN/VILANTER 100-62.5-25 MCG ELLIPTA 1 PUFF INHALATION (08:45)
[2022-02-13] MEDS: PERFLUTREN LIPID MICROSPHERES 1.5 ML VIAL DILUTED TO 10 ML TOTAL VOLUME IV PUSH (09:33)
--- NOTE | 2022-02-13 09:33 | IVDEFINITY ---
Prior to administration of IV Definity the patient was educated on the risks and benefits of the imaging enhancing agent including potential adverse side effects. The patient verbalized understanding. Allergies were verified. No exclusion criteria were identified and at least one of the following inclusion criteria were met: 1) physician request, 2) patient technically difficult to image (per the [place] [employer] guidelines of two or more segments not discernable within the apical view), or 3) questionable left ventricular function. ?
[2022-02-13] MEDS: ENOXAPARIN 40 MG/0.4 ML SYRINGE SUB-Q (10:14)
[2022-02-13 11:30] LABS: Glucose Point of Care 269 mg/dl (65-105)
[2022-02-13] MEDS: INSULIN ASPART (*BKC) 100 UNITS/ML SUB-Q ×3 (12:32→17:16)
--- NOTE | 2022-02-13 14:42 | PM.IMPN ---
Progress Note: A&P Assessment and Plan (1) Community acquired pneumonia: Code(s): J18.9 - Pneumonia, unspecified organism Status: Acute Assessment and Plan: Patient failed outpatient therapy with Z-Matthew and amoxicillin Started on levofloxacin Cultures in progress 02/14/2022 interval history: patient with long history of smoking presented with shortness of breath is found to have exacerbate Thatch of COPD patient was started on methylprednisone and DuoNeb patient's symptoms are improving and and states feeling much better compared to when he arrived, will taper down to prednisone 40 mg q.day, chest x-ray is also concerning for pneumonia patient started on levofloxacin to further evaluate will do the cardiac echo and further recommendation to follow. (2) Acute respiratory failure with hypoxia: Code(s): J96.01 - Acute respiratory failure with hypoxia Status: Acute Assessment and Plan: Currently on supplemental oxygen 4 L by nasal cannula try and keep oxygen saturation in between 90-94%. ABG reviewed Continue to monitor (3) COPD exacerbation: Code(s): J44.1 - Chronic obstructive pulmonary disease with (acute) exacerbation Status: Acute Assessment and Plan: scheduled breathing treatments Pulmonology consult CT chest reviewed Chest x-ray reviewed (4) ELISE (obstructive sleep apnea): Code(s): G47.33 - Obstructive sleep apnea (adult) (pediatric) Status: Acute Assessment and Plan: Currently on supplemental oxygen (5) AAA (abdominal aortic aneurysm): Code(s): I71.4 - Abdominal aortic aneurysm, without rupture Status: Acute Assessment and Plan: Follow-up in outpatient setting (6) GERD (gastroesophageal reflux disease): Code(s): K21.9 - Gastro-esophageal reflux disease without esophagitis Status: Acute Assessment and Plan: PPI daily (7) Type 2 diabetes mellitus with hyperglycemia: Code(s): E11.65 - Type 2 diabetes mellitus with hyperglycemia Status: Acute Assessment and Plan: Holding metformin Holding empagliflozin Holding metformin Holding glipizide Insulin sliding scale as needed Accu-Cheks AC and HS (8) Major depressive disorder, single episode, unspecified: Code(s): F32.9 - Major depressive disorder, single episode, unspecified Status: Acute Assessment and Plan: Stable Continue fluoxetine Subjective Date/time seen: 02/13/22 14:42 Chief Complaint: Shortness of breath. Narrative: This is a 66-year-old male with past medical history significant for COPD/emphysema patient is a former smoker, used to smoke 2-1/2 packs of cigarettes for 35 years,, dyslipidemia, benign prostatic hyperplasia, GERD, type 2 diabetes mellitus. Patient presents to the emergency room due to worsening shortness of breath now present with minimal exertion, this has been going on for the last month or so patient did a course of Z-Matthew and just is about to conclude a course of amoxicillin but is still having significant shortness of breath, patient has had also productive cough of yellowish to greenish sputum, patient denies any fevers, rigors or chills, patient has not been able to eat well due to shortness of breath, denies any leg swelling or ankle swelling or pedal swelling no PND or orthopnea, no chest pain, no dizziness no syncope no near-syncope. Patient was saturating in the 70% at home with pulse oximeter home device upon arrival to emergency room patient require 4 L of oxygen by nasal cannula. Preliminary workup was significant for CT of the chest with severe emphysema and superimposed pneumonia. Patient is being admitted for further evaluation, management and treatment. 02/14/2022 interval history: patient with long history of smoking presented with shortness of breath is found to have exacerbate Thatch of COPD patient was started on methylprednisone and DuoNeb patient's symptoms are improving and and sta
[2022-02-13 16:35] LABS: Glucose Point of Care 481 mg/dl (65-105)
[2022-02-13] MEDS: INSULIN GLARGINE (*BKC) 100 UNITS/ML 30 UNITS SUB-Q (17:16)
--- NOTE | 2022-02-13 18:49 | PM.CNPUL ---
Assessment and Plan Assessment and plan (1) Community acquired pneumonia: Code(s): J18.9 - Pneumonia, unspecified organism Status: Acute Assessment and Plan: New infiltrates on chest CT February 06, with cough, shortness of breath, mild increase in secretions over his baseline. His symptoms were worsening, and his shortness of breath prevented him from vaping for the last 12 days. He is on empiric antibiotics for community acquired pneumonia, can transition to oral meds such as cefdinir 300 mg bid to complete a 7 day course. He will need walk study before discharge, and will have more assessment of his COPD and hypoxemia in the clinic. He has used O2 in the past. Urine antigens for Legionella &, pneumococcus have been ordered. (2) Acute hypoxemic respiratory failure: Code(s): J96.01 - Acute respiratory failure with hypoxia Status: Acute Assessment and Plan: Saturation decreased to 78% this admission; needed O2 at home, may need to continue to use after discharge. He has severe emphysema on chest CT. Alpha-1 antitrypsin level and phenotype Will need Walk Study before going home; anticipate he may need O2 at home. 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 He was apying for the use of it, and was not sure that it was helping him. (3) COPD (chronic obstructive pulmonary disease): Qualifiers: COPD type: emphysema Emphysema type: unspecified Qualified Code(s): J43.9 - Emphysema, unspecified Code(s): J44.9 - Chronic obstructive pulmonary disease, unspecified Status: Acute Assessment and Plan: on Trelegy; he has inspiratory capacity to use this inhaler; will continue this and his PRN albuterol may be a candidate for cardiopulmonary rehab after discharge He quit vaping 12 days ago; was using THC, no longer nicotine (4) History of tobacco abuse: Code(s): Z87.891 - Personal history of nicotine dependence Status: Acute Assessment and Plan: quit 15 years ago, was up to 2.5 ppd (5) Enlarged RV (right ventricle): Code(s): I51.7 - Cardiomegaly Status: Acute Assessment and Plan: Enlarged right ventricle on echo today No pulmonary hypertension Appears to have RV dysfunction with a history of ELISE in the past and CPAP, he will need to have further f/u regarding sleep as an outpatient When he is stable, split night study History of Present Illness History of Present Illness Consult date: 02/14/22 Chief complaint: COPD Exacerbation Narrative: Patient seen February 13, 2022, about 8:00 pm NEW: Rashel Camilo is a 66 year old man with COPD on Trelegy for 2 years says that he has had increased shortness of breath for 4 to [address]. [address] Green Wed February [address] showing severe emphysema, a new RUL nodule and markings c/w pneumonia. The patient bought an oximeter to use at home, found that he was desaturating to 79% with exertion with slow recovery. He decided to come to the hospital yesterday when his saturation was too low for too long, was admitted February 12. He has shortness of breath with cleaning cat box -> bending over, lifting and emptying the box. He has wheezing only when he is sick. He has pneumonia now confirmed by CT. He normally does not have recurrent infections. His last pneumonia was in his twenties. He was on O[facility] several years ago[facility] He used it for about 6 months, decided that it was not helping much so he turned the concentrator in. He was on CPAP in the past stopped using. He pulled it out i
[2022-02-13 21:25] LABS: Glucose Point of Care 289 mg/dl (65-105)
[2022-02-13] MEDS: INSULIN GLARGINE (*BKC) 100 UNITS/ML 25 UNITS SUB-Q (21:26)
[2022-02-14] VITALS (20 sets, daily range): BP systolic 107–116; BP diastolic 58–69; PULSE 75–95; RESP 16–20; TEMP 36.1–36.6; O2SAT 89–96
[2022-02-14 07:46] LABS: Glucose Point of Care 138 mg/dl (65-105)
[2022-02-14] MEDS: TAMSULOSIN HCL 0.4 MG CAPSULE 0.8 MG PO (08:45)
[2022-02-14] MEDS: predniSONE 20 MG TABLET 40 MG PO (08:46)
[2022-02-14] MEDS: ROSUVASTATIN 10 MG TABLET 20 MG PO (08:46)
[2022-02-14] MEDS: PANTOPRAZOLE 40 MG TABLET PO (08:46)
[2022-02-14] MEDS: ENOXAPARIN 40 MG/0.4 ML SYRINGE SUB-Q (08:46)
[2022-02-14] MEDS: INSULIN ASPART (*BKC) 100 UNITS/ML SUB-Q ×3 (08:48→17:18)
[2022-02-14] MEDS: FLUoxetine HCL 20 MG CAPSULE 40 MG PO (08:51)
[2022-02-14] MEDS: IPRATROPIUM BR 0.02% INH SOLN 0.5 MG/2.5 ML VIAL INHALATION ×3 (09:35→19:33)
[2022-02-14] MEDS: FLUTICASONE/UMECLIDIN/VILANTER 100-62.5-25 MCG ELLIPTA 1 PUFF INHALATION (09:35)
[2022-02-14] MEDS: ALBUTEROL SULFATE NEB 2.5 MG/0.5 ML INH INHALATION ×3 (09:35→19:33)
[2022-02-14 11:35] LABS: Glucose Point of Care 151 mg/dl (65-105)
--- NOTE | 2022-02-14 14:04 | PCRCNOTE ---
Window of time for administration has passed. See next scheduled administration.
--- NOTE | 2022-02-14 16:07 | PM.IMPN ---
Progress Note: A&P Assessment and Plan (1) Community acquired pneumonia: Code(s): J18.9 - Pneumonia, unspecified organism Status: Acute Assessment and Plan: Patient failed outpatient therapy with Z-Matthew and amoxicillin Started on levofloxacin Cultures in progress 02/13/2022 interval history: patient with long history of smoking presented with shortness of breath is found to have exacerbate Thatch of COPD patient was started on methylprednisone and DuoNeb patient's symptoms are improving and and states feeling much better compared to when he arrived, will taper down to prednisone 40 mg q.day, chest x-ray is also concerning for pneumonia patient started on levofloxacin to further evaluate will do the cardiac echo and further recommendation to follow. 02/14/2022 interval history: patient with long history of smoking presented with shortness of breath is found to have exacerbate of COPD patient was started on methylprednisone and DuoNeb patient's symptoms are improving and and states feeling much better compared to when he arrived, tapered down to prednisone 40 mg q.day, chest x-ray is also concerning for pneumonia patient started on levofloxacin to further evaluate patient had a cardiac echo and showed preserved LV function with is ejection fraction 60-70% with grade 1 diastolic dysfunction will gently diurese the patient will continue to monitor have PT OT evaluate the patient. (2) Acute respiratory failure with hypoxia: Code(s): J96.01 - Acute respiratory failure with hypoxia Status: Acute Assessment and Plan: Currently on supplemental oxygen 4 L by nasal cannula try and keep oxygen saturation in between 90-94%. ABG reviewed Continue to monitor (3) COPD exacerbation: Code(s): J44.1 - Chronic obstructive pulmonary disease with (acute) exacerbation Status: Acute Assessment and Plan: scheduled breathing treatments Pulmonology consult CT chest reviewed Chest x-ray reviewed (4) ELISE (obstructive sleep apnea): Code(s): G47.33 - Obstructive sleep apnea (adult) (pediatric) Status: Acute Assessment and Plan: Currently on supplemental oxygen (5) AAA (abdominal aortic aneurysm): Code(s): I71.4 - Abdominal aortic aneurysm, without rupture Status: Acute Assessment and Plan: Follow-up in outpatient setting (6) GERD (gastroesophageal reflux disease): Code(s): K21.9 - Gastro-esophageal reflux disease without esophagitis Status: Acute Assessment and Plan: PPI daily (7) Type 2 diabetes mellitus with hyperglycemia: Code(s): E11.65 - Type 2 diabetes mellitus with hyperglycemia Status: Acute Assessment and Plan: Holding metformin Holding empagliflozin Holding metformin Holding glipizide Insulin sliding scale as needed Accu-Cheks AC and HS (8) Major depressive disorder, single episode, unspecified: Code(s): F32.9 - Major depressive disorder, single episode, unspecified Status: Acute Assessment and Plan: Stable Continue fluoxetine Subjective Date/time seen: 02/14/22 16:07 02/13/2022 interval history: patient with long history of smoking presented with shortness of breath is found to have exacerbate Thatch of COPD patient was started on methylprednisone and DuoNeb patient's symptoms are improving and and states feeling much better compared to when he arrived, will taper down to prednisone 40 mg q.day, chest x-ray is also concerning for pneumonia patient started on levofloxacin to further evaluate will do the cardiac echo and further recommendation to follow. 02/14/2022 interval history: patient with long history of smoking presented with shortness of breath is found to have exacerbate of COPD patient was started on methylprednisone and DuoNeb patient's symptoms are improving and and states feeling much better compared to when he arrived, tapered down to prednisone 40 mg q.day, chest
[2022-02-14 16:22] LABS: Glucose Point of Care 329 mg/dl (65-105)
[2022-02-14] MEDS: FUROSEMIDE INJ 40 MG/4 ML VIAL IV PUSH (17:20)
[2022-02-14] MEDS: INSULIN GLARGINE (*BKC) 100 UNITS/ML 25 UNITS SUB-Q (20:37)
[2022-02-14 23:21] LABS: Glucose Point of Care 310 mg/dl (65-105)
[2022-02-15] VITALS (21 sets, daily range): BP systolic 107–122; BP diastolic 67–76; PULSE 68–93; RESP 16–20; TEMP 36.2–37.1; O2SAT 86–96
[2022-02-15] MEDS: ALBUTEROL SULFATE NEB 2.5 MG/0.5 ML INH INHALATION ×5 (00:08→20:08)
[2022-02-15] MEDS: IPRATROPIUM BR 0.02% INH SOLN 0.5 MG/2.5 ML VIAL INHALATION ×5 (00:09→20:08)
[2022-02-15 08:03] LABS: Glucose Point of Care 140 mg/dl (65-105)
[2022-02-15] MEDS: FLUTICASONE/UMECLIDIN/VILANTER 100-62.5-25 MCG ELLIPTA 1 PUFF INHALATION (08:23)
[2022-02-15] MEDS: INSULIN ASPART (*BKC) 100 UNITS/ML SUB-Q ×4 (08:57→17:05)
[2022-02-15] MEDS: predniSONE 20 MG TABLET 40 MG PO (08:58)
[2022-02-15] MEDS: TAMSULOSIN HCL 0.4 MG CAPSULE 0.8 MG PO (08:58)
[2022-02-15] MEDS: FLUoxetine HCL 20 MG CAPSULE 40 MG PO (08:58)
[2022-02-15] MEDS: ROSUVASTATIN 10 MG TABLET 20 MG PO (08:59)
[2022-02-15] MEDS: FUROSEMIDE INJ 40 MG/4 ML VIAL IV PUSH (08:59)
[2022-02-15] MEDS: ENOXAPARIN 40 MG/0.4 ML SYRINGE SUB-Q (08:59)
[2022-02-15] MEDS: PANTOPRAZOLE 40 MG TABLET PO (09:00)
[2022-02-15 10:33] LABS: Hematocrit 44.7 % (42.0-52.0); Hemoglobin 14.6 g/dL (14.0-18.0); Mean Corpuscular HGB Conc 32.7 g/dl (32-36); Mean Corpuscular Volume 85.6 fl (80-100); Platelet Count Result 285 k/mm3 (150-375); Red Blood Count 5.22 M/mm3 (4.6-6.20); Red Cell Distribution Width 14.3 % (11.5-14.5); White Blood Count 8.4 K/mm3 (4.5-10.0)
[2022-02-15 10:45] LABS: Potassium 3.6 mmol/L (3.4-5.0)
[2022-02-15 10:47] LABS: Anion Gap 11 mmol/L (8-16); Blood Urea Nitrogen 21 mg/dL (9-20); Calcium 8.7 mg/dL (8.4-10.2); Carbon Dioxide 28 mmol/L (22-30); Chloride 96 mmol/L (98-107); Estimated CRCL calculation 82 ml/min; Estimated Glomerular Filt Rate > 60; Glucose 246 mg/dL (65-110); Magnesium 2.1 mg/dL (1.6-2.3); Sodium 135 mmol/L (137-145)
[2022-02-15 11:32] LABS: Glucose Point of Care 197 mg/dl (65-105)
--- NOTE | 2022-02-15 13:41 | PCCCNOTE ---
On 02/15/22, the student, [Emeli Roberts], provided care and completed [facility] documentation on this patient. I have reviewed the student's documentation and agree with the findings.
--- NOTE | 2022-02-15 15:43 | PM.IMPN ---
Progress Note: A&P Assessment and Plan (1) Community acquired pneumonia: Code(s): J18.9 - Pneumonia, unspecified organism Status: Acute Assessment and Plan: Patient failed outpatient therapy with Z-Matthew and amoxicillin Started on levofloxacin Cultures in progress 02/13/2022 interval history: patient with long history of smoking presented with shortness of breath is found to have exacerbate Thatch of COPD patient was started on methylprednisone and DuoNeb patient's symptoms are improving and and states feeling much better compared to when he arrived, will taper down to prednisone 40 mg q.day, chest x-ray is also concerning for pneumonia patient started on levofloxacin to further evaluate will do the cardiac echo and further recommendation to follow. 02/14/2022 interval history: patient with long history of smoking presented with shortness of breath is found to have exacerbate of COPD patient was started on methylprednisone and DuoNeb patient's symptoms are improving and and states feeling much better compared to when he arrived, tapered down to prednisone 40 mg q.day, chest x-ray is also concerning for pneumonia patient started on levofloxacin to further evaluate patient had a cardiac echo and showed preserved LV function with is ejection fraction 60-70% with grade 1 diastolic dysfunction will gently diurese the patient will continue to monitor have PT OT evaluate the patient. 02/15 interval history: patient with long history of smoking presented with shortness of breath is found to have exacerbate of COPD patient was started on methylprednisone and DuoNeb patient's symptoms are improving and and states feeling much better compared to when he arrived, tapered down to prednisone 40 mg q.day, chest x-ray is also concerning for pneumonia patient started on levofloxacin to further evaluate patient had a cardiac echo and showed preserved LV function with is ejection fraction 60-70% with grade 1 diastolic dysfunction, however last patient desaturated and was placed on oxygen, will continue to gently diurese the patient, will place the patient on fluid restriction 1500 cc a day, will continue to monitor have PT OT evaluate the patient. (2) Acute respiratory failure with hypoxia: Code(s): J96.01 - Acute respiratory failure with hypoxia Status: Acute Assessment and Plan: Currently on supplemental oxygen 4 L by nasal cannula try and keep oxygen saturation in between 90-94%. ABG reviewed Continue to monitor (3) COPD exacerbation: Code(s): J44.1 - Chronic obstructive pulmonary disease with (acute) exacerbation Status: Acute Assessment and Plan: scheduled breathing treatments Pulmonology consult CT chest reviewed Chest x-ray reviewed (4) ELISE (obstructive sleep apnea): Code(s): G47.33 - Obstructive sleep apnea (adult) (pediatric) Status: Acute Assessment and Plan: Currently on supplemental oxygen (5) AAA (abdominal aortic aneurysm): Code(s): I71.4 - Abdominal aortic aneurysm, without rupture Status: Acute Assessment and Plan: Follow-up in outpatient setting (6) GERD (gastroesophageal reflux disease): Code(s): K21.9 - Gastro-esophageal reflux disease without esophagitis Status: Acute Assessment and Plan: PPI daily (7) Type 2 diabetes mellitus with hyperglycemia: Code(s): E11.65 - Type 2 diabetes mellitus with hyperglycemia Status: Acute Assessment and Plan: Holding metformin Holding empagliflozin Holding metformin Holding glipizide Insulin sliding scale as needed Accu-Cheks AC and HS (8) Major depressive disorder, single episode, unspecified: Code(s): F32.9 - Major depressive disorder, single episode, unspecified Status: Acute Assessment and Plan: Stable Continue fluoxetine Subjective Date/time seen: 02/15/22 15:43 Patient failed outpatient therapy with Z-Matthew and
[2022-02-15 17:04] LABS: Glucose Point of Care 317 mg/dl (65-105)
--- NOTE | 2022-02-15 17:28 | PM.PNPUL ---
Progress Note: A&P Assessment and Plan (1) Community acquired pneumonia: Code(s): J18.9 - Pneumonia, unspecified organism Status: Acute Assessment and Plan: New infiltrates on chest CT February 06, with cough, shortness of breath, mild increase in secretions over his baseline. These symptoms are better. He is on O2, and can have Home O2 study Saturday morning, set up with O2 and go home. He can stay off vaping. He can transition to oral meds such as cefdinir 300 mg bid to complete a 7 day course. More assessment of COPD and hypoxemia in the clinic. He has used O2 in the past. Urine antigens for Legionella &, pneumococcus as well as alpha-1 labs are still pending. have been ordered. (2) Acute hypoxemic respiratory failure: Code(s): J96.01 - Acute respiratory failure with hypoxia Status: Acute Assessment and Plan: Saturation decreased to 78% this admission; needed O2 and will need to go home on O2. He has severe emphysema on chest CT. Alpha-1 antitrypsin level and phenotype pending. Will plan PFTs, repeat Home O2 evaluation 2-6 weeks after discharge He used O2 several years ago, turned the concentrator back to [employer]. He was paying for it, not sure that it was helping him. He definitely needs it now. (3) COPD (chronic obstructive pulmonary disease): Qualifiers: COPD type: emphysema Emphysema type: unspecified Qualified Code(s): J43.9 - Emphysema, unspecified Code(s): J44.9 - Chronic obstructive pulmonary disease, unspecified Status: Acute Assessment and Plan: on Trelegy; he has inspiratory capacity to use this inhaler; will continue this and his PRN albuterol may be a candidate for cardiopulmonary rehab after discharge He quit vaping 124days ago; was using THC, no longer nicotine (4) History of tobacco abuse: Code(s): Z87.891 - Personal history of nicotine dependence Status: Acute Assessment and Plan: quit 15 years ago, was up to 2.5 ppd (5) Enlarged RV (right ventricle): Code(s): I51.7 - Cardiomegaly Status: Acute Assessment and Plan: Enlarged right ventricle on echo today No pulmonary hypertension Appears to have RV dysfunction with a history of ELISE in the past and CPAP, he will need to have further f/u regarding sleep as an outpatient When he is stable, split night study Subjective Date/time seen: 02/15/22 17:28 Hospital follow up visit; Rashel Camilo is a 66 year old man seen in follow up for pneumonia and hypoxemia, on O2 now, and has not worn this at home except at night several years ago. he has COPD on Trelegy for 2 years says that he has had increased shortness of breath for 4 to 6 weeks. He feels much better than he did on admission, not coughing any sputum. He has nasal drainage that triggers coughing when he sits upright from supine position. Lowest saturation today was 86%, not sure how much O2 he was on. He saw Dr Green SatFebruary [address] showing severe emphysema, a new RUL nodule and markings c/w pneumonia. The patient bought an oximeter to use at home, found that he was desaturating to 79% with exertion with slow recovery. He decided to come to the hospital yesterday when his saturation was too low for too long, was admitted February 12. ABG on 3.5 L/min : pH 7.471/ pCO2 31 / pO2 = 65.5 / Saturation 94.3% WBC 10.9K; DATA * 02/13/22-echo ; LV chamber dimension is normal. LVEF 65-70%. Grade I diastolic dysfunciton. Hypokinetic basal anteroseptal and mid anteroseptal areas, RV mildly enlarged. RV systolic function is reduced. RVSP 29 mmHg, no pulmonary hypertension. RV apex is severe
[2022-02-15] MEDS: INSULIN GLARGINE (*BKC) 100 UNITS/ML 25 UNITS SUB-Q (20:04)
[2022-02-15 20:50] LABS: Glucose Point of Care 227 mg/dl (65-105)
[2022-02-16] VITALS (12 sets, daily range): BP systolic 109; BP diastolic 64; PULSE 84–102; RESP 16–18; TEMP 36.1; O2SAT 87–98
[2022-02-16] MEDS: IPRATROPIUM BR 0.02% INH SOLN 0.5 MG/2.5 ML VIAL INHALATION ×2 (00:47→08:20)
[2022-02-16] MEDS: ALBUTEROL SULFATE NEB 2.5 MG/0.5 ML INH INHALATION ×2 (00:47→08:20)
[2022-02-16 08:00] LABS: Glucose Point of Care 217 mg/dl (65-105)
[2022-02-16] MEDS: FLUTICASONE/UMECLIDIN/VILANTER 100-62.5-25 MCG ELLIPTA 1 PUFF INHALATION (08:20)
[2022-02-16] MEDS: ROSUVASTATIN 10 MG TABLET 20 MG PO (08:30)
[2022-02-16] MEDS: predniSONE 20 MG TABLET 40 MG PO (08:30)
[2022-02-16] MEDS: FLUoxetine HCL 20 MG CAPSULE 40 MG PO (08:30)
[2022-02-16] MEDS: ENOXAPARIN 40 MG/0.4 ML SYRINGE SUB-Q (08:30)
[2022-02-16] MEDS: FUROSEMIDE INJ 40 MG/4 ML VIAL IV PUSH (08:30)
[2022-02-16] MEDS: PANTOPRAZOLE 40 MG TABLET PO (08:30)
[2022-02-16] MEDS: TAMSULOSIN HCL 0.4 MG CAPSULE 0.8 MG PO (08:30)
[2022-02-16] MEDS: INSULIN ASPART (*BKC) 100 UNITS/ML SUB-Q ×2 (08:30→08:31)
--- NOTE | 2022-02-16 09:45 | PCRCNOTE ---
Home oxygen evaluation completed. Patient requires 2 liters per minute at rest and with activity. Oxygen being arranged with [facility] ([phone]). Tank in patient's room for discharge home.
--- NOTE | 2022-02-16 09:51 | HOMEO2EVAL ---
Evaluation was performed at [facility] Home Oxygen Evaluation RC: Home Oxygen (O2) Evaluation Start: 02/16/22 09:05 Freq: ONCE Status: Active Protocol: RPE Activity Type Activity Date Activity User E-Sign Co-Sign Detail Recorded Client Recorded Date Recorded By Document 02/16/22 09:20 [email or web address] [email or web address] 02/16/22 09:48 KLA Document 02/16/22 09:21 [email or web address] [email or web address] 02/16/22 09:51 KLA Document 02/16/22 09:22 [email or web address] [email or web address] 02/16/22 09:51 KLA Document 02/16/22 09:24 [email or web address] [email or web address] 02/16/22 09:51 KLA 02/16/22 02/16/22 02/16/22 09:20 09:21 09:22 Home O2 Evaluation Test Phase Resting Resting Resting Oxygen Delivery Room Air Nasal Cannula Nasal Cannula Oxygen Flow Rate (L/min) 1 2 Pulse Oximetry (90-100 %) 87 L 87 L 91 Pulse Rate (60-100 beats/min) 97 93 91 Activity Tolerance Ambulation Distance (feet) Ambulation Distance (meters) Treatment Charges O2 Evaluation - Inpatient 02/16/22 09:24 Home O2 Evaluation Test Phase Exercise Oxygen Delivery Nasal Cannula Oxygen Flow Rate (L/min) 2 Pulse Oximetry (90-100 %) 92 Pulse Rate (60-100 beats/min) 102 H Activity Tolerance Excellent Ambulation Distance (feet) 200 Ambulation Distance (meters) 60.95 Treatment Charges
[2022-02-16 10:00] LABS: Hematocrit 49.5 % (42.0-52.0); Mean Corpuscular HGB Conc 32.3 g/dl (32-36); Mean Corpuscular Hemoglobin 27.9 pg (26-34); Mean Corpuscular Volume 86.4 fl (80-100); Mean Platelet Volume 10.1 fl (7.4-10.4); Platelet Count Result 333 k/mm3 (150-375); Red Blood Count 5.73 M/mm3 (4.6-6.20); Red Cell Distribution Width 14.2 % (11.5-14.5); White Blood Count 8.9 K/mm3 (4.5-10.0)
[2022-02-16 10:09] LABS: Anion Gap 10 mmol/L (8-16); Blood Urea Nitrogen 22 mg/dL (9-20); Calcium 9.3 mg/dL (8.4-10.2); Carbon Dioxide 32 mmol/L (22-30); Chloride 94 mmol/L (98-107); Estimated CRCL calculation 82 ml/min; Estimated Glomerular Filt Rate > 60; Glucose 218 mg/dL (65-110); Potassium 3.7 mmol/L (3.4-5.0); Sodium 136 mmol/L (137-145)
--- NOTE | 2022-02-16 10:14 | P.DS_ITS ---
DS: Admitting Diagnosis Discharge Date 02/16/2022 Admitting Diagnosis shortness of breath DS: Discharge Diagnosis Discharge Diagnosis (1) Community acquired pneumonia: Code(s): J18.9 - Pneumonia, unspecified organism Status: Acute Assessment and Plan: Patient failed outpatient therapy with Z-Matthew and amoxicillin Started on levofloxacin Cultures in progress 02/13/2022 interval history: patient with long history of smoking presented with shortness of breath is found to have exacerbate Thatch of COPD patient was started on methylprednisone and DuoNeb patient's symptoms are improving and and states feeling much better compared to when he arrived, will taper down to prednisone 40 mg q.day, chest x-ray is also concerning for pneumonia patient started on levofloxacin to further evaluate will do the cardiac echo and further recommendation to follow. 02/14/2022 interval history: patient with long history of smoking presented with shortness of breath is found to have exacerbate of COPD patient was started on methylprednisone and DuoNeb patient's symptoms are improving and and states feeling much better compared to when he arrived, tapered down to prednisone 40 mg q.day, chest x-ray is also concerning for pneumonia patient started on levofloxacin to further evaluate patient had a cardiac echo and showed preserved LV function with is ejection fraction 60-70% with grade 1 diastolic dysfunction will gently diurese the patient will continue to monitor have PT OT evaluate the patient. 02/15 interval history: patient with long history of smoking presented with shortness of breath is found to have exacerbate of COPD patient was started on methylprednisone and DuoNeb patient's symptoms are improving and and states feeling much better compared to when he arrived, tapered down to prednisone 40 mg q.day, chest x-ray is also concerning for pneumonia patient started on levofloxacin to further evaluate patient had a cardiac echo and showed preserved LV function with is ejection fraction 60-70% with grade 1 diastolic dysfunction, however last patient desaturated and was placed on oxygen, will continue to gently diurese the patient, will place the patient on fluid restriction 1500 cc a day, will continue to monitor have PT OT evaluate the patient. (2) Acute respiratory failure with hypoxia: Code(s): J96.01 - Acute respiratory failure with hypoxia Status: Acute Assessment and Plan: Currently on supplemental oxygen 4 L by nasal cannula try and keep oxygen saturation in between 90-94%. ABG reviewed Continue to monitor (3) COPD exacerbation: Code(s): J44.1 - Chronic obstructive pulmonary disease with (acute) exacerbation Status: Acute Assessment and Plan: scheduled breathing treatments Pulmonology consult CT chest reviewed Chest x-ray reviewed (4) ELISE (obstructive sleep apnea): Code(s): G47.33 - Obstructive sleep apnea (adult) (pediatric) Status: Acute Assessment and Plan: Currently on supplemental oxygen (5) AAA (abdominal aortic aneurysm): Code(s): I71.4 - Abdominal aortic aneurysm, without rupture Status: Acute Assessment and Plan: Follow-up in outpatient setting (6) GERD (gastroesophageal reflux disease): Code(s): K21.9 - Gastro-esophageal reflux disease without esophagitis Status: Acute Assessment and Plan: PPI daily (7) Type 2 diabetes mellitus with hyperglycemia: Code(s): E11.65 - Type 2 diabetes mellitus with hyperglycemia Status: Acute Assessment and Plan: H
--- NOTE | 2022-02-16 16:14 | PCCCNOTE ---
On 02/16/22, the student, [ Emeli Jamison], provided care and completed [facility] documentation on this patient. I have reviewed the student's documentation and agree with the findings.
[2022-02-17 02:51] LABS: Legionella pneumophila Ag Ur Not Detected (Not Detected)
[2022-02-17 15:57] LABS: Pneumococcal Antigen Urine Not Detected (Not Detected)
[2022-02-19 06:56] LABS: Alpha-1-Antitrypsin, QN 193 mg/dL (83-199)
== END 2022-02-16 10:30 | disposition home or self-care (01) | DRG 193 ==
LOC: ANHED 19:37 → ANH3MEDSUR 02-13 10:11
PROVIDERS: Internal Medicine Critical Care Medicine; Physician Assistant; Admitting Provider Internal Medicine; Emergency Provider Emergency Medicine; PCP Family Medicine; Visit Provider Family Medicine
DX: J18.9 Pneumonia, unspecified organism (principal); J96.01 Acute respiratory failure with hypoxia; N13.8 Other obstructive and reflux uropathy; J43.9 Emphysema, unspecified; N40.1 Benign prostatic hyperplasia with lower urinary tract symptoms; Z20.822 Contact with and (suspected) exposure to COVID-19; E11.65 Type 2 diabetes mellitus with hyperglycemia; E78.00 Pure hypercholesterolemia, unspecified; F32.9 Major depressive disorder, single episode, unspecified; E11.42 Type 2 diabetes mellitus with diabetic polyneuropathy; G47.33 Obstructive sleep apnea (adult) (pediatric); I51.7 Cardiomegaly; I71.4 Abdominal aortic aneurysm, without rupture; K21.9 Gastro-esophageal reflux disease without esophagitis; N40.0 Benign prostatic hyperplasia without lower urinary tract symptoms; R91.1 Solitary pulmonary nodule; Z79.84 Long term (current) use of oral hypoglycemic drugs; Z87.891 Personal history of nicotine dependence; Z79.899 Other long term (current) drug therapy
CPT/HCPCS: 36415; 36600; 71046; 80048; 80053; 82103; 82104; 82805; 82948; 83735; 83880; 84484; 85025; 85027; 87040; 87070; 87205; 87449; 87502; 87899; 93005; 93306; 94618; 94640; 96374; 99285; A9270; C9803; J1650; J1815; J1940; J1956; J2930; J7512; Q9957; U0003; U0005

== ENCOUNTER 2022-03-13 09:16 | Outpatient (CLI) | payer MEDICARE, OTHER, SELFPAY ==
[2022-03-13 09:30] VITALS: PULSE 90; O2SAT 89
[2022-03-13 09:35] VITALS: PULSE 112; O2SAT 85
[2022-03-13 09:40] VITALS: PULSE 114; O2SAT 86
[2022-03-13 09:45] VITALS: PULSE 113; O2SAT 88
[2022-03-13 09:50] VITALS: PULSE 115; O2SAT 90
[2022-03-13 10:05] VITALS: PULSE 89; O2SAT 90
--- NOTE | 2022-03-13 10:52 | HOMEO2EVAL ---
Evaluation was performed at [facility] Home Oxygen Evaluation RC: Home Oxygen (O2) Evaluation Start: 03/13/22 10:48 Freq: Status: Active Protocol: RPE Activity Type Activity Date Activity User E-Sign Co-Sign Detail Recorded Client Recorded Date Recorded By Document 03/13/22 09:30 DJO [email or web address] 03/13/22 10:52 DJO Document 03/13/22 09:35 [email or web address] [email or web address] 03/13/22 10:52 DJO Document 03/13/22 09:40 [email or web address] [email or web address] 03/13/22 10:52 DJO Document 03/13/22 09:45 [email or web address] [email or web address] 03/13/22 10:52 DJO Document 03/13/22 09:50 [email or web address] [email or web address] 03/13/22 10:52 DJO Document 03/13/22 10:05 [email or web address] [email or web address] 03/13/22 10:52 DJO 03/13/22 03/13/22 03/13/22 09:30 09:35 09:40 Home O2 Evaluation Test Phase Resting Exercise Exercise Oxygen Delivery Room Air Room Air Nasal Cannula Oxygen Flow Rate (L/min) 1 Pulse Oximetry (90-100 %) 89 L 85 L 86 L Pulse Rate (60-100 beats/min) 90 112 H 114 H Activity Tolerance Ambulation Distance (feet) Ambulation Distance (meters) Treatment Charges O2 Evaluation - Outpatient 03/13/22 03/13/22 03/13/22 09:45 09:50 10:05 Home O2 Evaluation Test Phase Exercise Exercise Resting Oxygen Delivery Nasal Cannula Nasal Cannula Room Air Oxygen Flow Rate (L/min) 2 3 Pulse Oximetry (90-100 %) 88 L 90 90 Pulse Rate (60-100 beats/min) 113 H 115 H 89 Activity Tolerance Good Ambulation Distance (feet) 750 Ambulation Distance (meters) 228.58 Treatment Charges
--- NOTE | 2022-03-14 06:34 | WPDPFTINT ---
PFT Procedure Performed PFT Procedure Performed Spirometry with Pre/Post Bronchodilator Plethysmography (Lung Vol) Diffusing Cap (DLCO) Flow Vol Loop PFT Interpretation This is a pulmonary function test with pre and post-bronchodilator spirometry, plethysmography and diffusing capacity. The test was performed and results interpreted in accordance with the 2019 and 2005 ATS/ERS Task Force guidelines respectively using the Global Lung Function Initiative-2012 reference equations. Patient demonstrated good effort and cooperation. Reproducibility criteria were met. The quality of the pre bronchodilator spirometry maneuver was Grade A and post bronchodilator spirometry maneuver was Grade A. Findings: Spirometry: There is decreased maximal expiratory airflow at all lung volumes with a concaved expiratory flow tracing. The contour the inspiratory flow tracing is normal. The pre bronchodilator FVC is 3.90 L, 130% predicted. The pre bronchodilator FEV1 is 2.47 L, 105% predicted. The pre bronchodilator FEV1: FVC ratio was 63%. The post bronchodilator FVC is 4.14 L, representing a 6% increase. The post bronchodilator FEV1 is 2.61 L, representing a 6% increase. The post bronchodilator FEV1: FVC ratio 63%. Plethysmography: The total lung capacity is 6.34 L, 128% predicted. The functional residual capacity is 3.90 L, 157% predicted. The residual volume is 2.44 L, 133% predicted. Diffusing capacity: The diffusing capacity unadjusted for hemoglobin a carboxyhemoglobin is 9.8, 43% predicted. The diffusing capacity adjusted for alveolar volume is 1.90, 41% predicted. Impression: There is a mild obstructive abnormality without significant improvement after inhaling a single dose of albuterol. The lung volumes are normal. The diffusing capacity unadjusted for hemoglobin and carboxyhemoglobin is moderately decreased and remians moderately decreased when adjusted for alveolar volume. There are no prior studies for comparison
== END 2022-03-13 09:17 | disposition home or self-care (01) ==
LOC: ANHPFT 09:19
PROVIDERS: PCP Family Medicine; Visit Provider Internal Medicine Critical Care Medicine
DX: J43.9 Emphysema, unspecified (principal); R94.2 Abnormal results of pulmonary function studies
CPT/HCPCS: 94060; 94618; 94726; 94729

== ENCOUNTER 2022-05-12 11:04 | Outpatient (CLI) | payer MEDICARE, OTHER, SELFPAY ==
--- NOTE | ~2022-05-12 | CT_ITS ---
EXAMINATION: CT diagnostic chest wo con DATE: 05/12/2022 11:28 INDICATION: Pulmonary nodules. TECHNIQUE: Computed tomography (CT) of the chest was performed without intravenous contrast. The dose -length product was 286.86 mGy-cm. Automated exposure control and iterative reconstruction technique were employed. COMPARISON: CT dated 02/06/2022 FINDINGS: There is mild atherosclerosis of the aorta and coronary arteries. No significant pleural or pericardial effusions. Stable right paratracheal lymph node, likely reactive. The upper abdomen is u nremarkable. There is severe emphysema with coarse peripheral interstitial lung disease bilaterally, consistent with chronic interstitial fibrosis. There has been improved groundglass opacities in both lungs. The right upper lobe nodule has resolved since prior examination, most likely infectious/infla mmatory. There are a few small nodules predominantly in the upper lobes measuring 2 mm or less. No pn eumothorax. There are a few calcified granulomata. There are areas of tree-in-bud configuration in th e upper lobes, most likely infectious/inflammatory. IMPRESSION: 1. Significant improvement of interstitial lung disease, groundglass opacities and right upper lobe n odule, most likely infectious/inflammatory. Findings superimposed on background of emphysema and lunchroom monitor robert interstitial fibrosis. Reviewed, dictated and finalized at location A. IMPRESSION: 1. Significant improvement of interstitial lung disease, groundglass opacities and right upper lobe nodule, most likely infectious/inflammatory. Findings supe rimposed on background of emphysema and chronic interstitial fibrosis.
== END 2022-05-12 11:05 | disposition home or self-care (01) ==
LOC: ANHIMG 11:09
PROVIDERS: PCP Family Medicine; Visit Provider Internal Medicine Critical Care Medicine
DX: R91.1 Solitary pulmonary nodule (principal)
CPT/HCPCS: 71250

== ENCOUNTER 2022-05-22 11:19 | Outpatient (CLI) | payer MEDICARE, OTHER, SELFPAY ==
[2022-05-22 12:04] LABS: Alanine Aminotransferase 21 U/L (6-50); Albumin Level 4.7 g/dL (3.5-5.1); Alkaline Phosphatase 82 U/L (38-126); Anion Gap 9 mmol/L (8-16); Aspartate Amino Transferase 23 U/L (17-59); Bilirubin,Total 0.8 mg/dL (0.2-1.3); Blood Urea Nitrogen 12 mg/dL (9-20); Calcium 9.1 mg/dL (8.4-10.2); Carbon Dioxide 25 mmol/L (22-30); Chloride 102 mmol/L (98-107); Estimated Glomerular Filt Rate > 60; Glucose 156 mg/dL (65-110); Potassium 4.3 mmol/L (3.4-5.0); Sodium 136 mmol/L (137-145)
[2022-05-22 20:27] LABS: Hemoglobin A1C 9.6 % (<5.7)
== END 2022-05-22 11:20 | disposition home or self-care (01) ==
LOC: ANHLAB 11:22
PROVIDERS: PCP Family Medicine; Visit Provider Family Medicine
DX: E11.42 Type 2 diabetes mellitus with diabetic polyneuropathy (principal); E11.65 Type 2 diabetes mellitus with hyperglycemia
CPT/HCPCS: 36415; 80053; 83036

== ENCOUNTER 2022-09-06 10:50 | Emergency (ER) | payer MEDICARE, OTHER, SELFPAY ==
[2022-09-06] VITALS (9 sets, daily range): BP systolic 127–134; BP diastolic 71–85; PULSE 73–88; RESP 12–19; TEMP 36.9; O2SAT 93–95
--- NOTE | ~2022-09-06 | CT_ITS ---
EXAMINATION: CT chest abdomen pelvis w con DATE: 09/06/2022 12:39 INDICATION: Left chest pain. TECHNIQUE: Computed tomography (CT) of the chest, abdomen, and pelvis was performed with 100 mL Omnip aque 350 intravenous contrast. Automated exposure control and iterative reconstruction technique were employed. The dose-length product was 1214.06 mGy-cm. COMPARISON: Chest CT 05/12/2022 FINDINGS: CHEST CT: There is moderate emphysema. There are chronic peripheral reticular opacities in the inferior lungs. There are a few scattered nodules in the lungs measuring up to 3 mm, likely benign. No pleural effusi on. There is a 5 mm nodule in left thyroid lobe, likely not clinically significant. The heart size is normal. There are coronary artery calcifications. No pericardial effusion. There is a small sliding hiatal hernia. There is mild thoracic spondylosis. ABDOMEN/PELVIS CT: There are cysts in the liver measuring up to 19 mm. The gallbladder, spleen, pancreas, adrenal glands , and kidneys are normal. There are no dilated loops of bowel. The appendix is normal. There are no p athologically enlarged lymph nodes. There is no free intraperitoneal fluid. There is a fusiform aneur ysm of infrarenal aorta measuring 3.4 cm. There is a left inguinal hernia containing fat. There is an umbilical hernia containing fat. There is a benign bone island in left ilium. There is mild lumbar s pondylosis. IMPRESSION: 1. 3.4 cm fusiform aneurysm of infrarenal aorta. 2. Umbilical hernia containing fat. Left inguinal hernia containing fat. 3. Small sliding hiatal hernia. 4. Diffuse lung disease, likely a combination of moderate emphysema and chronic interstitial lung dis ease. Reviewed, dictated and finalized at location A. IMPRESSION: 1. 3.4 cm fusiform aneurysm of infrarenal aorta. 2. Umbilical hernia containing fat. Left inguinal hernia containing fat. 3. Small sliding hiatal hernia. 4. Diffuse lung disease, likely a combination of moderate emphysema and chronic interstitial lung disease.
--- NOTE | ~2022-09-06 | XR_ITS ---
EXAMINATION: XR chest 2V DATE: 09/06/2022 11:27 INDICATION: Heart palpitations. TECHNIQUE: Frontal and lateral views of the chest were obtained. COMPARISON: Chest 2 views 02/12/22, chest CT 05/12/2022 FINDINGS: There are chronic lucencies in the lungs, consistent with emphysema. Again seen are reticul ar opacities in the lower lung zones. No pleural effusion or pneumothorax. The heart size is normal. IMPRESSION: 1. Stable emphysema and chronic interstitial lung disease. Reviewed, dictated and finalized at location A.
--- NOTE | 2022-09-06 10:51 | ECG_ITS ---
Measurements Intervals [place] Rate: 72 P: 49 PA: 159 QRS: 33 QRSD: 108 T: 28 QT: 404 QTc: 445 Interpretive Statements SINUS RHYTHM DELAYED PRECORDIAL R/S TRANSITION BORDERLINE T WAVE ABNORMALITY- ANTERIOR LEADS BORDERLINE ECG COMPARED TO ECG 02/12/2022 18:16:34 ST AND T-WAVE ABNORMALITY, CONSIDER ANTERIOR ISCHEMIA RESOLVED Electronically Signed On 09-06-2022 11:06:25 CDT by Jim Vyas D.O.
[2022-09-06 11:15] LABS: Basophils Absolute Auto 0.1 K/mm3 (0.0-0.1); Basophils Percent Auto 0.9 % (0.2-1.2); Eosinophils Absolute Auto 0.3 K/mm3 (0-0.3); Hematocrit 50.1 % (42.0-52.0); Hemoglobin 16.7 g/dL (14.0-18.0); Immature Granulocyte Absolute 0.05 K/mm3 (0.00-0.031); Immature Granulocyte Percent A 0.6 % (0-0.5); Mean Corpuscular HGB Conc 33.3 g/dl (32-36); Mean Corpuscular Hemoglobin 28.8 pg (26-34); Mean Corpuscular Volume 86.4 fl (80-100); Mean Platelet Volume 10.4 fl (7.4-10.4); Monocytes Absolute Auto 0.5 K/mm3 (0.1-0.6); Monocytes Percent Auto 6.3 % (2.6-8.5); Neutrophils Absolute Auto 5.8 K/mm3 (1.3-6.7); Neutrophils Percent Auto 67.2 % (45.5-73.1); Platelet Count Result 204 k/mm3 (150-375); White Blood Count 8.6 K/mm3 (4.5-10.0)
--- NOTE | 2022-09-06 11:24 | ED.ARRPALP ---
HPI - Arrhythmia/Palpitations General Chief Complaint: Arrhythmia/Palpitations Stated Complaint: palpations Time Seen by Provider: 09/06/22 11:22 Source: patient Mode of arrival: ambulatory Limitations: no limitations History of Present Illness HPI narrative: Patient is a 67-year-old with a history of type 2 diabetes, COPD, hyperlipidemia, acid reflux, abdominal aortic aneurysm, presenting to the emergency department for evaluation of left-sided chest pain and intermittent palpitations. Patient reports that he has had palpitations that have increased in frequency and strength over the past several months. Patient states that he thought that they would go away but since have increased in frequency, patient decided to come to the emergency department. Patient also states that he is spoken with Dr. Green his primary care physician regarding this as well as Dr. Ramirez his sales planner without diagnosis of his symptoms. Today, patient states he experienced very minimal left-sided chest pain in conjunction with a strong palpitation. He denies jaw pain, neck pain, shoulder pain, back pain. No ripping or tearing sensation to the flank or abdomen. Patient denied associated pleuritic pain, shortness of breath. He denies lower extremity swelling or pain. Denies recent long car or air travel. Patient with history of COVID in spring 2021 with hospitalization and does require supplemental oxygen with exertional activity. Patient denies recent URI symptoms. He denies recent medication changes. Patient is a former smoker. Related Data Allergies Allergy/AdvReac Type Severity Reaction Status Date / Time doxycycline [From Vibramycin] Allergy Unknown Rash Verified 06/29/22 12:59 erythromycin base Allergy Unknown Rash Verified 06/29/22 12:59 Review of Systems Review of Systems: CONSTITUTIONAL: Denies fever, chills, or sweats. EYES: Denies visual changes, redness, or discharge. ENT: Denies rhinorrhea, congestion, sore throat, or otalgia. CARDIOVASCULAR: Denies current chest pain, reports palpitations without leg edema RESPIRATORY: Denies cough or dyspnea. GASTROINTESTINAL: Denies abdominal pain, nausea, vomiting, or diarrhea. GENITOURINARY: Denies dysuria or hematuria. SKIN: Denies rash or itching. MUSCULOSKELETAL: Denies back pain, joint pain, or myalgia. NEUROLOGIC: Denies headache, numbness, or weakness. [facility] Past Medical History Medical History AAA (abdominal aortic aneurysm) BPH loc w urin obs/LUTS COPD (chronic obstructive pulmonary disease) Diabetic polyneuropathy associated with type 2 diabetes mellitus GERD (gastroesophageal reflux disease) Pure hypercholesterolemia Surgical History Surgical History History of sinus surgery x 3 Family History Family History Sibling Family history of diabetes mellitus in first degree relative Father Family history of throat cancer Social History Social History Social History: . Retired from the . Lives at home with his . He has grown children. He started vaping THC in the last 2 years, quit 12 days before admission, around the end of January 2022. Smoking packs per day: 2.5 Smoking cigarettes per day: 50.0 Years smoked: 35 Smoking pack-years: 87.50 Smoking status: Former smoker Tobacco type: cigarettes Second hand tobacco smoke exposure: No Smoking end date: 12/17/07 Additional smoking assessment comments: stopped 12 years ago. Smoked 35 years. Alcohol intake: current Drinks per week: 1 Alcohol use details: Occasional alcohol use Substance use: never Substance use type: marijuana Other substance usage details: THC Gender identity (if verbalized by the patient): Male Spiritual care concerns: No Exam Narrative: GENERAL:
[2022-09-06 11:28] LABS: Alanine Aminotransferase 23 U/L (6-50); Alkaline Phosphatase 86 U/L (38-126); Anion Gap 13 mmol/L (8-16); Aspartate Amino Transferase 27 U/L (17-59); Bilirubin,Total 0.8 mg/dL (0.2-1.3); Blood Urea Nitrogen 13 mg/dL (9-20); Calcium 9.4 mg/dL (8.4-10.2); Carbon Dioxide 24 mmol/L (22-30); Chloride 101 mmol/L (98-107); Estimated CRCL calculation 90 ml/min; Estimated Glomerular Filt Rate > 60; Glucose 144 mg/dL (65-110); Lipase 1871 U/L (23-300); Potassium 4.3 mmol/L (3.4-5.0); Sodium 138 mmol/L (137-145)
[2022-09-06 11:34] LABS: Prothrombin Time 12.9 Seconds (11.1-14.7)
[2022-09-06 11:35] LABS: Partial Thromboplastin Time 29.8 SECONDS (22.3-36.8)
[2022-09-06 11:40] LABS: Troponin I < 0.012 ng/mL (0.000-0.034)
[2022-09-06] MEDS: ASPIRIN 81 MG CHEWABLE TABLET 324 MG PO (12:42)
[2022-09-06 12:44] LABS: NT Pro B Type Natriuretic Pept 75 pg/mL (5-100)
[2022-09-06 14:34] LABS: Troponin I < 0.012 ng/mL (0.000-0.034)
--- NOTE | 2022-09-11 16:04 | WPDHOLTEREM ---
Holter/Event Monitor Holter/Event Monitor Date of procedure: 09/06/22 Holter/Event Procedure: 48 Hr Holter Monitor Indications: Palpitations Conclusion: 1. 48 hour holter monitor on 09/06/22. 2. Predominant rhythm is sinus rhythm. HR range 63-136 bpm; average HR 91 bpm. 3. There are 44 premature supraventricular complexes. There is 1 episode of atrial tachycardia at 145 bpm lasting 6 beats. 4. There are 6,056 premature ventricular complexes, 6 ventricular couplets, 3 ventricular bigeminy and 591 ventricular trigeminy. No ventricular tachycardia. 5. No sinoatrial or atrioventricular blocks. No significant pauses greater than 2 seconds. 6. No symptoms available for correlation.
== END 2022-09-06 16:10 | disposition home or self-care (01) ==
PROVIDERS: Emergency Provider Emergency Medicine; PCP Family Medicine
DX: I49.3 Ventricular premature depolarization (principal); R00.2 Palpitations; R74.8 Abnormal levels of other serum enzymes; J43.9 Emphysema, unspecified; E78.5 Hyperlipidemia, unspecified; E11.9 Type 2 diabetes mellitus without complications; K21.9 Gastro-esophageal reflux disease without esophagitis; Z86.16 Personal history of COVID-19; N40.1 Benign prostatic hyperplasia with lower urinary tract symptoms; N13.8 Other obstructive and reflux uropathy; Z79.84 Long term (current) use of oral hypoglycemic drugs; Z87.891 Personal history of nicotine dependence; J84.9 Interstitial pulmonary disease, unspecified; R94.31 Abnormal electrocardiogram [ECG] [EKG]
CPT/HCPCS: 36415; 71046; 71260; 74177; 80053; 83690; 83880; 84484; 85025; 85610; 85730; 93005; 93225; 93226; 99284; A9270; Q9967

== ENCOUNTER 2022-09-18 11:50 | Outpatient (CLI) | payer MEDICARE, OTHER, SELFPAY ==
[2022-09-18 12:15] LABS: Alanine Aminotransferase 25 U/L (6-50); Albumin Level 4.7 g/dL (3.5-5.1); Alkaline Phosphatase 103 U/L (38-126); Anion Gap 13 mmol/L (8-16); Aspartate Amino Transferase 25 U/L (17-59); Bilirubin,Total 0.7 mg/dL (0.2-1.3); Blood Urea Nitrogen 15 mg/dL (9-20); Calcium 9.2 mg/dL (8.4-10.2); Carbon Dioxide 25 mmol/L (22-30); Chloride 100 mmol/L (98-107); Cholesterol 109 mg/dL (0-200); Estimated Glomerular Filt Rate > 60; Glucose 300 mg/dL (65-110); HDL Direct 34 mg/dL; Potassium 4.5 mmol/L (3.4-5.0); Sodium 138 mmol/L (137-145); Triglycerides 219 mg/dL (<150)
[2022-09-18 12:16] LABS: Appearance Urine Clear (Clear); Bilirubin Urine Negative (Negative); Blood Urine Negative (Negative); Color Urine Yellow (Yellow); Glucose Urine UA 3+ mg/dL (Negative); Ketones Urine Trace mg/dL (Negative); Leukocyte Esterase Ur Negative LEU/UL (NEGATIVE); Nitrate Urine Negative (Negative); Protein Urine Negative (Negative); Specific Grav Ur 1.015 (1.001-1.035); Urobilinogen Urine 0.2 mg/dL (<2.0); pH Urine 5.5 (5.0-9.0)
[2022-09-18 12:16] LABS: Basophils Absolute Auto 0.1 K/mm3 (0.0-0.1); Basophils Percent Auto 0.8 % (0.2-1.2); Eosinophils Absolute Auto 0.2 K/mm3 (0-0.3); Eosinophils Percent Auto 2.7 % (0-4.4); Hematocrit 50.2 % (42.0-52.0); Hemoglobin 16.4 g/dL (14.0-18.0); Immature Granulocyte Absolute 0.05 K/mm3 (0.00-0.031); Immature Granulocyte Percent A 0.7 % (0-0.5); Lymphocytes Absolute Auto 1.45 K/mm3 (0.9-3.2); Lymphocytes Percent Auto 18.9 % (18.3-44.2); Mean Corpuscular HGB Conc 32.7 g/dl (32-36); Mean Corpuscular Hemoglobin 28.4 pg (26-34); Mean Platelet Volume 10.3 fl (7.4-10.4); Monocytes Absolute Auto 0.4 K/mm3 (0.1-0.6); Monocytes Percent Auto 5.7 % (2.6-8.5); Neutrophils Absolute Auto 5.5 K/mm3 (1.3-6.7); Neutrophils Percent Auto 71.2 % (45.5-73.1); Platelet Count Result 235 k/mm3 (150-375); Red Blood Count 5.77 M/mm3 (4.6-6.20); Red Cell Distribution Width 14.2 % (11.5-14.5); White Blood Count 7.7 K/mm3 (4.5-10.0)
[2022-09-18 12:22] LABS: Mucus Urine Rare /lpf; WBC Urine 0-3 /hpf (0-3)
[2022-09-18 12:26] LABS: LDL Cholesterol Direct 49 mg/dL
[2022-09-18 12:29] LABS: Add Urine Microscopic? YES
[2022-09-18 12:31] LABS: Hemoglobin A1C 8.9 % (<5.7)
[2022-09-18 13:05] LABS: Creatinine Urine 35.7 mg/dL
[2022-09-18 13:39] LABS: MALB Creatinine Ratio < 16.8 mg/g (0-30); Microalbumin Urine Random < 6.0 mg/L (0-16.7)
== END 2022-09-18 11:51 | disposition home or self-care (01) ==
PROVIDERS: PCP Family Medicine; Visit Provider Nurse Practitioner Family
DX: E03.9 Hypothyroidism, unspecified (principal); E78.00 Pure hypercholesterolemia, unspecified; K21.9 Gastro-esophageal reflux disease without esophagitis; E11.42 Type 2 diabetes mellitus with diabetic polyneuropathy; J44.9 Chronic obstructive pulmonary disease, unspecified; E11.65 Type 2 diabetes mellitus with hyperglycemia; Z12.5 Encounter for screening for malignant neoplasm of prostate; N40.1 Benign prostatic hyperplasia with lower urinary tract symptoms; E78.2 Mixed hyperlipidemia
CPT/HCPCS: 36415; 80053; 80061; 81001; 82043; 83036; 84153; 84443; 85025; G0103

== ENCOUNTER 2023-01-16 15:54 | Outpatient (CLI) | payer MEDICARE, OTHER, SELFPAY ==
[2023-01-16 16:21] LABS: Alanine Aminotransferase 26 U/L (6-50); Albumin Level 4.9 g/dL (3.5-5.1); Alkaline Phosphatase 88 U/L (38-126); Anion Gap 8 mmol/L (8-16); Aspartate Amino Transferase 23 U/L (17-59); Bilirubin,Total 0.8 mg/dL (0.2-1.3); Blood Urea Nitrogen 14 mg/dL (9-20); Calcium 9.6 mg/dL (8.4-10.2); Carbon Dioxide 27 mmol/L (22-30); Chloride 104 mmol/L (98-107); Estimated Glomerular Filt Rate > 60; Glucose 121 mg/dL (65-110); Sodium 139 mmol/L (137-145)
[2023-01-16 16:27] LABS: Hemoglobin A1C 8.7 % (<5.7)
== END 2023-01-16 15:55 | disposition home or self-care (01) ==
PROVIDERS: PCP Family Medicine; Visit Provider Family Medicine
DX: E11.42 Type 2 diabetes mellitus with diabetic polyneuropathy (principal); E11.65 Type 2 diabetes mellitus with hyperglycemia
CPT/HCPCS: 36415; 80053; 83036

== ENCOUNTER 2023-05-28 15:38 | Outpatient (CLI) | payer MEDICARE, OTHER, SELFPAY ==
[2023-05-28 16:40] LABS: Alanine Aminotransferase 21 U/L (6-50); Albumin Level 4.7 g/dL (3.5-5.1); Alkaline Phosphatase 80 U/L (38-126); Anion Gap 14 mmol/L (8-16); Aspartate Amino Transferase 22 U/L (17-59); Bilirubin,Total 0.8 mg/dL (0.2-1.3); Blood Urea Nitrogen 16 mg/dL (9-20); Calcium 9.4 mg/dL (8.4-10.2); Carbon Dioxide 23 mmol/L (22-30); Chloride 102 mmol/L (98-107); Estimated Glomerular Filt Rate > 60; Glucose 129 mg/dL (65-110); Potassium 3.8 mmol/L (3.4-5.0); Sodium 139 mmol/L (137-145)
[2023-05-28 17:46] LABS: Hemoglobin A1C 8.6 % (<5.7)
== END 2023-05-28 15:39 | disposition home or self-care (01) ==
PROVIDERS: PCP Family Medicine; Visit Provider Family Medicine
DX: E11.65 Type 2 diabetes mellitus with hyperglycemia (principal)
CPT/HCPCS: 36415; 80053; 83036

== ENCOUNTER 2023-10-03 11:17 | Outpatient (CLI) | payer MEDICARE, OTHER, SELFPAY ==
[2023-10-03 13:03] LABS: Hematocrit 48.3 % (42.0-52.0); Hemoglobin 16.4 g/dL (14.0-18.0); Mean Corpuscular Hemoglobin 29.5 pg (26-34); Mean Corpuscular Volume 86.9 fl (80-100); Mean Platelet Volume 10.9 fl (7.4-10.4); Platelet Count Result 228 k/mm3 (150-375); Red Blood Count 5.56 M/mm3 (4.6-6.20); Red Cell Distribution Width 13.9 % (11.5-14.5); White Blood Count 8.3 K/mm3 (4.5-10.0)
[2023-10-03 13:06] LABS: Alanine Aminotransferase 29 U/L (6-50); Albumin Level 4.6 g/dL (3.5-5.1); Alkaline Phosphatase 85 U/L (38-126); Anion Gap 12 mmol/L (8-16); Aspartate Amino Transferase 27 U/L (17-59); Bilirubin,Total 0.7 mg/dL (0.2-1.3); Blood Urea Nitrogen 11 mg/dL (9-20); Calcium 9.4 mg/dL (8.4-10.2); Carbon Dioxide 24 mmol/L (22-30); Chloride 100 mmol/L (98-107); Cholesterol 129 mg/dL (0-200); Estimated Glomerular Filt Rate > 60; Glucose 125 mg/dL (65-110); HDL Direct 41 mg/dL; Potassium 3.9 mmol/L (3.4-5.0); Sodium 136 mmol/L (137-145); Triglycerides 158 mg/dL (<150)
[2023-10-03 13:17] LABS: LDL Cholesterol Direct 65 mg/dL
[2023-10-03 13:35] LABS: Prostate Specific Antigen 0.8 ng/mL (< OR = 4.0)
[2023-10-03 13:59] LABS: Hemoglobin A1C 7.7 % (<5.7)
== END 2023-10-03 11:18 | disposition home or self-care (01) ==
PROVIDERS: PCP Family Medicine; Visit Provider Family Medicine
DX: E11.65 Type 2 diabetes mellitus with hyperglycemia (principal); E78.00 Pure hypercholesterolemia, unspecified; R35.1 Nocturia; R53.83 Other fatigue; N40.1 Benign prostatic hyperplasia with lower urinary tract symptoms
CPT/HCPCS: 36415; 80053; 80061; 83036; 84153; 84443; 85027

== ENCOUNTER 2023-10-15 13:55 | Outpatient (CLI) | payer MEDICARE, OTHER, SELFPAY ==
--- NOTE | ~2023-10-15 | CT_ITS ---
CT Scan of the Chest without Contrast: Clinical Indication: Lung cancer screening, smoking history Technique: Contiguous sections were acquired throughout the chest without intravenous contrast. Dose reduction technique was used on this scan by utilizing automated exposure control and iterative recon struction technique. The dose-length product (DLP) was 185.32 mGy-cm. COMPARISON: 09/06/2022 Findings: There is no evidence of any significant mediastinal, hilar or axillary lymphadenopathy. There are ath erosclerotic calcifications of the aorta and coronary arteries. There is no evidence of pleural or pericardial effusion. There is severe emphysema. There is a 5 mm right upper lobe pulmonary nodule (axial image 57), new fr om prior exam. Images through the upper abdomen reveal no abnormalities. Impression: Lung RADS 2: Benign appearance. 12 month follow-up screening CT advised. Severe emphysema. Reviewed, dictated and finalized at [facility]. 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 12 month follow-up screening CT advised. Severe emphysema.
== END 2023-10-15 13:56 | disposition home or self-care (01) ==
PROVIDERS: PCP Family Medicine; Visit Provider Family Medicine
DX: Z12.2 Encounter for screening for malignant neoplasm of respiratory organs (principal); Z87.891 Personal history of nicotine dependence; J43.9 Emphysema, unspecified
CPT/HCPCS: 71271

== ENCOUNTER 2024-02-06 13:30 | Outpatient (CLI) | payer MEDICARE, OTHER, SELFPAY ==
[2024-02-06 14:32] LABS: Alanine Aminotransferase 21 U/L (6-50); Albumin Level 4.6 g/dL (3.5-5.1); Alkaline Phosphatase 79 U/L (38-126); Anion Gap 7 mmol/L (4-12); Aspartate Amino Transferase 27 U/L (17-59); Bilirubin,Total 0.8 mg/dL (0.2-1.3); Blood Urea Nitrogen 14 mg/dL (9-20); Calcium 9.5 mg/dL (8.4-10.2); Carbon Dioxide 26 mmol/L (22-30); Chloride 104 mmol/L (98-107); Estimated Glomerular Filt Rate > 60; Glucose 127 mg/dL (65-110); Potassium 4.3 mmol/L (3.4-5.0); Sodium 137 mmol/L (137-145)
[2024-02-07 00:02] LABS: Hemoglobin A1C 7.5 % (<5.7)
== END 2024-02-06 13:31 | disposition home or self-care (01) ==
PROVIDERS: PCP Family Medicine; Visit Provider Family Medicine
DX: E11.65 Type 2 diabetes mellitus with hyperglycemia (principal)
CPT/HCPCS: 36415; 80053; 83036

== ENCOUNTER 2024-06-11 12:23 | Outpatient (CLI) | payer MEDICARE, OTHER, SELFPAY ==
[2024-06-11 13:01] LABS: Alanine Aminotransferase 17 U/L (6-50); Albumin Level 4.6 g/dL (3.5-5.1); Alkaline Phosphatase 73 U/L (38-126); Anion Gap 13 mmol/L (4-12); Aspartate Amino Transferase 29 U/L (17-59); Bilirubin,Total 0.6 mg/dL (0.2-1.3); Blood Urea Nitrogen 16 mg/dL (9-20); Calcium 9.4 mg/dL (8.4-10.2); Carbon Dioxide 24 mmol/L (22-30); Chloride 100 mmol/L (98-107); Estimated Glomerular Filt Rate > 60; Glucose 141 mg/dL (65-110); Potassium 4.2 mmol/L (3.4-5.0); Sodium 137 mmol/L (137-145)
[2024-06-11 15:55] LABS: Hemoglobin A1C 8.8 % (<5.7)
== END 2024-06-11 12:24 | disposition home or self-care (01) ==
LOC: ANHLAB 12:27
PROVIDERS: PCP Family Medicine; Visit Provider Family Medicine
DX: E11.65 Type 2 diabetes mellitus with hyperglycemia (principal); E11.42 Type 2 diabetes mellitus with diabetic polyneuropathy
CPT/HCPCS: 36415; 80053; 83036

== ENCOUNTER 2024-10-05 14:56 | Outpatient (CLI) | payer MEDICARE, OTHER, SELFPAY ==
--- NOTE | ~2024-10-05 | CT_ITS ---
CT Scan of the Chest without Contrast: Clinical Indication: Pulmonary nodule Technique: Contiguous sections were acquired throughout the chest without intravenous contrast. Dose reduction technique was used on this scan by utilizing automated exposure control and iterative recon struction technique. The dose-length product (DLP) was 196.01 mGy-cm. COMPARISON: 10/15/2023 Findings: There is no evidence of any significant mediastinal, hilar or axillary lymphadenopathy. Extensive cor onary artery calcifications are present. There is no evidence of pleural or pericardial effusion. There is advanced emphysema. 3 mm right upper lobe pulmonary nodule is decreased from prior exam (axi al image 54). Stable additional 3 mm right upper lobe pulmonary nodule (axial images 56). Mild bibasi lar peripheral chronic interstitial changes are present. Images through the upper abdomen reveal no abnormalities. Impression: Severe emphysema. Stable mild bibasilar chronic interstitial changes. Subcentimeter right upper lobe pulmonary nodules, as above, stable or decreased. Reviewed, dictated and finalized at location . 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 Stable mild bibasilar chronic interstitial changes. Subcentimeter right upper l obe pulmonary nodules, as above, stable or decreased.
== END 2024-10-05 14:57 | disposition home or self-care (01) ==
LOC: ANHIMG 15:01
PROVIDERS: PCP Family Medicine; Visit Provider Physician Assistant
DX: R91.1 Solitary pulmonary nodule (principal); J43.9 Emphysema, unspecified
CPT/HCPCS: 71250

== ENCOUNTER 2024-10-09 12:45 | Outpatient (CLI) | payer MEDICARE, OTHER, SELFPAY ==
[2024-10-09 13:07] LABS: Hematocrit 48.7 % (42.0-52.0); Hemoglobin 16.5 g/dL (14.0-18.0); Mean Corpuscular HGB Conc 33.9 g/dl (32-36); Mean Corpuscular Hemoglobin 29.6 pg (26-34); Mean Corpuscular Volume 87.4 fl (80-100); Mean Platelet Volume 10.1 fl (7.4-10.4); Platelet Count Result 193 k/mm3 (150-375); Red Blood Count 5.57 M/mm3 (4.6-6.20); Red Cell Distribution Width 14.6 % (11.5-14.5); White Blood Count 8.2 K/mm3 (4.5-10.0)
[2024-10-09 13:13] LABS: Add Urine Microscopic? NO; Appearance Urine Clear (Clear); Bilirubin Urine Negative (Negative); Blood Urine Negative (Negative); Color Urine Yellow (Yellow); Glucose Urine UA 3+ mg/dL (Negative); Ketones Urine Trace mg/dL (Negative); Leukocyte Esterase Ur Negative LEU/UL (Negative); Nitrate Urine Negative (Negative); Protein Urine Negative (Negative); Specific Grav Ur 1.037 (1.001-1.035); pH Urine 5.5 (5.0-9.0)
[2024-10-09 13:27] LABS: Alanine Aminotransferase 22 U/L (6-50); Albumin Level 4.7 g/dL (3.5-5.1); Alkaline Phosphatase 85 U/L (38-126); Anion Gap 7 mmol/L (4-12); Aspartate Amino Transferase 25 U/L (17-59); Bilirubin,Total 0.8 mg/dL (0.2-1.3); Blood Urea Nitrogen 12 mg/dL (9-20); Calcium 9.3 mg/dL (8.4-10.2); Carbon Dioxide 28 mmol/L (22-30); Chloride 104 mmol/L (98-107); Cholesterol 104 mg/dL (0-200); Estimated Glomerular Filt Rate > 60; Glucose 117 mg/dL (65-110); HDL Direct 45 mg/dL; Potassium 4.3 mmol/L (3.4-5.0); Sodium 139 mmol/L (137-145); Triglycerides 158 mg/dL (<150)
[2024-10-09 13:38] LABS: LDL Cholesterol Direct 38 mg/dL
[2024-10-09 13:57] LABS: Prostate Specific Antigen 0.9 ng/mL (< OR = 4.0)
[2024-10-09 14:07] LABS: Creatinine Urine 68.8 mg/dL
[2024-10-09 14:13] LABS: MALB Creatinine Ratio 10.8 mg/g (0-30); Microalbumin Urine Random 7.4 mg/L (0-16.7)
[2024-10-09 14:14] LABS: Hemoglobin A1C 7.3 % (<5.7)
== END 2024-10-09 12:46 | disposition home or self-care (01) ==
PROVIDERS: PCP Family Medicine; Visit Provider Family Medicine
DX: E11.65 Type 2 diabetes mellitus with hyperglycemia (principal); E78.00 Pure hypercholesterolemia, unspecified; R35.1 Nocturia; Z00.00 Encounter for general adult medical examination without abnormal findings; N40.1 Benign prostatic hyperplasia with lower urinary tract symptoms
CPT/HCPCS: 36415; 80053; 80061; 81003; 82043; 83036; 84153; 84443; 85027

== ENCOUNTER 2025-02-09 12:34 | Outpatient (CLI) | payer MEDICARE, OTHER, SELFPAY ==
[2025-02-09 13:18] LABS: Alanine Aminotransferase 25 U/L (6-50); Albumin Level 4.7 g/dL (3.5-5.1); Alkaline Phosphatase 76 U/L (38-126); Anion Gap 16 mmol/L (4-12); Aspartate Amino Transferase 24 U/L (17-59); Bilirubin,Total 0.8 mg/dL (0.2-1.3); Blood Urea Nitrogen 11 mg/dL (9-20); Calcium 9.5 mg/dL (8.4-10.2); Carbon Dioxide 24 mmol/L (22-30); Chloride 100 mmol/L (98-107); Estimated Glomerular Filt Rate > 60; Glucose 112 mg/dL (65-110); Potassium 4.4 mmol/L (3.4-5.0); Sodium 140 mmol/L (137-145)
--- OUTSIDE RECORDS SUMMARY | 2025-02-09 13:38 | XMS_ITS | Referral Summary ---
Author Organization [facility] [place] [address] Address [address] [place] [address] Care Team Providers Care Payroll Lead Name Role Phone Darian Green MD Primary Care Provider Allergies Active Allergy Reactions Criticality Noted Date Comments Erythromycin Rash Medium 01/19/2021 Doxycycline Rash Medium 01/19/2021 Medications Crestor 20 mg tablet 1 Active metFORMIN XR (GLUCOPHAGE XR) 500 mg 24 hr tablet 1 Active exenatide microspheres (BYDUREON) 2 mg/0.65 mL pen injector Inject under the skin Active glipiZIDE (GLUCOTROL) 10 mg tablet 0 Active fluticasone propion-salmetero L (ADVAIR DISKUS) 100-50 mcg/dose diskus inhaler Inhale 1 puff 2 (two) times a day Rinse mouth with water after use. Do not swallow. Active empagliflozin (JARDIANCE) 25 mg tabletIndications :type 2 diabetes mellitus 1 tablet (25 mg total) Active ibuprofen (ADVIL,MOTRIN) 800 mg tablet 0 Active tamsulosin (FLOMAX) 0.4 mg extended release capsule 0 Active omeprazole (PriLOSEC) 20 mg capsule 2 capsules (40 mg total) 2 (two) times a day 1 Active sulfamethoxazole- trimethoprim (BACTRIM DS) 800-160 mg per tablet 1 Active FLUoxetine (PROzac) 40 mg capsule 1 Active aspirin 81 mg enteric coated tablet Take 1 tablet (81 mg total) by mouth daily Active fluticasone/umecl idin/vilanter (TRELEGY ELLIPTA INHAL) Inhale Active Trulicity 0.75 mg/0.5 mL pen injector 3 Active Active Problems Problem Noted Date Diagnosed Date Abnormal stress test 01/16/2021 Palpitations 01/16/2021 AAA (abdominal aortic aneurysm) Hyperlipidemia Resolved Problems Problem Noted Date Diagnosed Date Resolved Date Chest pain 01/16/2021 03/19/2022 Social History Tobacco Use Types Packs/Day Years Used Date Smoking Tobacco: Former Smokeless Tobacco: Never Tobacco Cessation:Counseling Given: Not Answered Personal Safety Answer Date Recorded Getting School Help Needed Not on file 11/03 Sex and Gender Information Value Date Recorded Sex Assigned at Not on file Legal Sex Male 1:27 PM [employer] Gender Identity Not on file Sexual Orientation Not on file Last Filed Vital Signs Vital Sign Reading Time Taken Comments Blood Pressure 110/70 03/25/2023 8:59 AM CDT Pulse 83 03/25/2023 8:59 AM CDT Temperature 36.3 C (97.3 F) 01/19/2021 8:22 AM CDT Respiratory Rate - - Oxygen Saturation 94% 03/25/2023 8:59 AM CDT Inhaled Oxygen Concentration - - Weight 94.8 kg (209 lb) 03/25/2023 8:59 AM CDT Height 177.8 cm (5' 10 ) 03/25/2023 8:59 AM CDT Body Mass Index 29.99 03/25/2023 8:59 AM CDT Plan of Treatment Not on file Insurance [employer] Care Teams Payroll Lead Relationship Specialty Start Date End Date Darian Green MD [address] [place] [address] PCP - General Family Medicine 01/03/21
--- OUTSIDE RECORDS SUMMARY | 2025-02-09 13:38 | XMS_ITS | Clinical Summary ---
Author Organization [facility] Address [address] [place] [address] Care Team Providers Care Cookie Breaker Name Role Phone Darian Green MD Primary Care Provider [phone] Allergies Active Allergy Reactions Criticality Noted Date Comments Doxycycline Rash,Unknown Medium 02/01/2014 Erythromycin Rash Medium 01/19/2021 Medications metFORMIN 1000 MG tablet Take 2,000 mg by mouth daily with breakfast. Active glipiZIDE 10 MG tablet Take 10 mg by mouth every morning before breakfast. Active rosuvastatin 20 MG tablet Take 20 mg by mouth nightly at bedtime. Active FLUoxetine 40 MG capsule Take 40 mg by mouth in the morning. Active omeprazole EC 20 MG tablet Take 20 mg by mouth in the morning. Active tamsulosin 0.4 MG Cap Take 0.4 mg by mouth in the morning. Active aspirin EC 81 MG tablet Take 81 mg by mouth in the morning. Active Social History Tobacco Use Types Packs/Day Years Used Date Smoking Tobacco: Never Assessed Sex and Gender Information Value Date Recorded Sex Assigned at Not on file Legal Sex Male 10:25 PM CDT Gender Identity Not on file Sexual Orientation Not on file Last Filed Vital Signs Vital Sign Reading Time Taken Comments Blood Pressure 104/66 03/26/2022 7:44 PM CDT Pulse 86 03/26/2022 7:44 PM CDT Temperature 36.7 C (98 F) 03/26/2022 4:34 PM CDT Respiratory Rate 18 03/26/2022 7:44 PM CDT Oxygen Saturation 92% 03/26/2022 7:44 PM CDT Inhaled Oxygen Concentration - - Weight 118.4 kg (261 lb) 03/26/2022 4:34 PM CDT Height 177.8 cm (5' 10 ) 03/26/2022 4:34 PM CDT Body Mass Index 37.45 03/26/2022 4:34 PM CDT Plan of Treatment Health Maintenance Due Date Last Done Comments Colorectal Cancer Screening Colonoscopy (10 Years) 1954 Hepatitis C 1972 Annual Medicare Wellness Visit 2019 Pneumococcal Vaccine: 65+ Years (1 of 1 - PCV) 2019 DTaP, Tdap and Td Vaccines ( 2 - Td or Tdap) 09/10/2022 09/10/2012 COVID-19 Vaccine (3 - 2023-2 5 season) 2024 01/17/2021, 12/27/2020 RSV Immunization or 60+ Years (1 - 1-dose 75+ series) 2029 Zoster Vaccines Completed 09/25/2019, 07/27/2019, 10/14/2016 Meningococcal B Vaccine Aged Out No l onger eligible based on patient's age to complete this topic Meningococcal Vaccine Aged Out No barb sameer eligible based on patient's age to complete this topic RSV Immunizations Under 20 Months Aged Out No longer eligible b ased on patient's age to complete this topic Insurance MEDICARE Care Teams Cookie Breaker Relationship Specialty Start Date End Date Darian Green MD [address] [place] [address] PCP - General FAMILY PRACTICE 06/28/21
--- OUTSIDE RECORDS SUMMARY | 2025-02-09 13:38 | XMS_ITS | CONTINUITY OF CARE DOCUMENT ---
Author Name matty starr Address Unknown Organization [facility] Address [address] [place] [address] Phone [phone] Care Team Providers Care China And Silverware Salesperson Name Role Phone Stevie ARIAS, Kierra Unavailable [phone] EDUARDO ARIAS, VALENTINA Unavailable KEENA ARIAS, CASTILLO Unavailable Unavailable INSURANCE PROVIDERS Payer name Policy type / Coverage type [place] red constitution party ID [id number]
--- OUTSIDE RECORDS SUMMARY | 2025-02-09 13:38 | XMS_ITS | Encounter Summary ---
Author Organization [facility] Address [address] [place] [address] Care Team Providers Care Diver'S Tender Name Role Phone Darian Green MD Primary Care Provider [phone] Encounter Details Date Type Department Care Team (Latest Contact Info) Description 09/09/2018 Abstract [facility] , Ray Hunter MD Social History Tobacco Use Types Packs/Day Years Used Date Smoking Tobacco: Never Assessed Sex and Gender Information Value Date Recorded Sex Assigned at Not on file Legal Sex Male 10:25 PM CDT Gender Identity Not on file Sexual Orientation Not on file documented as of this encounter Plan of Treatment Not on file documented as of this encounter Visit Diagnoses Not on filedocumented in this encounter Additional Health Concerns Infection Onset Date Last Indicated Resolved Time COVID-19 Rule Out 03/26/2022 03/26/2022 03/26/2022 5:06 PM CDT COVID-19 Confirmed 03/26/2022 03/26/2022 12:34 AM CDT documented as of this encounter Care Teams Diver'S Tender Relationship Specialty Start Date End Date Darian Green MD [address] [place] [address] PCP - General FAMILY PRACTICE 06/28/21 documented as of this encounter
--- OUTSIDE RECORDS SUMMARY | 2025-02-09 13:38 | XMS_ITS | Clinical Summary ---
Author Organization [facility] [address] Address [address] [place] [address] Care Team Providers Care Assistant Service Manager Name Role Phone Darian Green MD Primary [...] Date Resolved Date Chest pain 01/16/2021 03/19/2022 Surgical History Surgery Date Site/Laterality Comments SINUS SURGERY x3 Medical History Medical History Date Comments AAA (abdominal aortic aneurysm) Diabetes mellitus (HCC) CAD (coronary artery disease) History of [place] (myocardial infarction) Overweight Hyperlipidemia Pneumonia Cataract Anxiety and depression COPD (chronic obstructive pulmonary disease) (HC C) Sleep apnea Arthritis Emphysema lung (HCC) Family History Medical History Relation Name Comments Heart failure Brother Heart failure Mother Relation Name Status Comments Brother (Age 56) Father (Age 61) Mother (Age 80) Social History Tobacco Use Types Packs/Day Years Used Date Smoking Tobacco: Former Smokeless Tobacco: Never Tobacco Cessation:Counseling Given: Not Answered Personal Safety Answer Date Recorded Getting School Help Needed Not on file 11/03 Sex and Gender Information Value Date Recorded Sex Assigned at Not on file 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 Gender Identity Not on file Sexual Orientation Not on file Obstetrics History Last Filed Vital Signs Vital Sign Reading [...] 03/25/2023 8:59 AM CDT Plan of Treatment Health Maintenance Due Date Last Done Comments Colon Cancer Screening-Colonoscopy 1954 Depression Screening 1954 Fall Risk Assessment 1955 Hepatitis C Screening 1954 DTaP/Tdap/Td Vaccine (1 - Tdap) 1965 Hepatitis B Screening 1972 Pneumococcal vaccine 65+ (2 of 2 - PCV) 09/17/2015 09/17/2014 Well Visit 65+ 2019 Influenza Vaccine (#1) 2024 0, 07/27/2019, 07/14/2018, Additional history exists Zoster Vaccine Completed 09/25/2019, 07/06, 10/14/2016 Abdominal Aortic Aneurysm (A AA) Screen Completed 03/25/2023, 03/19/2022, 03/23/2021, Additional history exists Insurance MEDICARE FOR LIFE Care Teams Assistant Service Manager Relationship Specialty Start Date End Date Darian Green MD [address] [place] [id number] PCP - General Family Medicine 01/03/21
== END 2025-02-09 12:35 | disposition home or self-care (01) ==
PROVIDERS: PCP Family Medicine; Visit Provider Family Medicine
DX: E11.65 Type 2 diabetes mellitus with hyperglycemia (principal)
CPT/HCPCS: 36415; 80053; 83036

== ENCOUNTER 2025-06-21 11:53 | Outpatient (CLI) | payer MEDICARE, OTHER, SELFPAY ==
--- OUTSIDE RECORDS SUMMARY | 2025-06-21 13:02 | XMS_ITS | Clinical Summary ---
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 Gender Identity Not on file Sexual Orientation [...] 8:59 AM CDT Height 177.8 cm (5' 10) 03/25/2023 8:59 AM CDT Body Mass Index [...] Well Visit 65+ 2019 Influenza Vaccine (#1) 2025 0, 07/27/2019, 07/14/2018, Additional history exists Zoster Vaccine Completed 09/25/2019, 07/06, 10/14/2016 Abdominal Aortic Aneurysm (A AA) Screen Completed 03/25/2023, 03/19/2022, 03/23/2021, Additional history exists Insurance MEDICARE [employer] Care Teams Motorcycle Fabricator Relationship Specialty Start Date End Date Darian Green MD [address] [place] [address] PCP - General Family Medicine 01/03/21
--- OUTSIDE RECORDS SUMMARY | 2025-06-21 13:02 | XMS_ITS | Continuity of Care Document ---
Author Name [facility] Organization [facility] Care Team Providers Care User Experience Researcher Name Role Phone [facility] Unavailable Unavailable Problems Combined list of problems from Department of Defense and Veterans Affairs facilities. It does not include entries that were removed or entered in error. 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 DoD CHRONIC OBSTRUCTIVE PULMONARY DISEASE Active Condition Mild by sx . Trial of Spiriva. Pt congratulated for smoking cessation - importance of cessation stressed to prevent progression of dz to best of our ability. Pt expressed understanding. DoD visit for: screening exam respiratory disorders Inactive Condition DoD visit for: administrative purpose Inactive Condition DoD SEBORRHEIC KERATOSIS INFLAMED Active Condition three itc hy Sk's tx with ln2; DoD ROSACEA Active Condition patient wa s counselled for great deal of time on the options of cosmetic treatment to include continued phototherapy or laser treatment. He was offered referral to treating physicians who offer concious sedation for laser ablation of mild rhinophyma. He generally seemed unsatisfied with his appearance. He was encouraged that weight-loss may improve his satisfaction with his appearance and his over-all health more than cosmetic procedures. He states that he has seriously been considering this. He declined further treatment at this time and will RTC if he changes his mind. DoD ANOMALIES OF SKIN Active Condition DoD RHINITIS Active Condition DoD difficulty breathing (dyspnea) Active Condition DoD NORMAL ROUTINE HISTORY AND PHYSICAL ADULT (18-65) Inactive Condition Pt to have repeat colonoscopy in 3 years for colon polyp - BORIS performed. DoD visit for: issue repeat prescription for medication Inactive Condition DoD HYPERLIPIDEMIA Active Condition contr olled - will continue on current dosage of zocor. DoD NICOTINE DEPENDENCE Active Condition Pt given Rx for Chantix - to quit smoking after staring medication in 1 week - will continue for 12 weeks and may extend for 12 more weeks if successful in quitting and doing well on the medication. DoD GASTRITIS Active Condition Will shahid nue on Prilosec indefinitely. DoD PRESBYOPIA Active Condition DoD REFRACTIVE ERROR - MYOPIA Active Condition DoD VISUAL DISTURBANCES Active Condition Ophthalmic migraine DoD VITREOUS FLOATERS - BOTH EYES Active Condition DoD UPPER RESPIRATORY INFECTION Inactive Condition resolving URI sx DoD BENIGN PAROXYSMAL POSITIONAL VERTIGO Active Condition DoD black or tarry stools (melena) Active Condition 2. 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 DoD ASTIGMATISM Active Condition DoD visit for: routine eye exam Inactive Condition DoD Macules And Papules Active Condition Pt referred to dermatology in [facility] for further eval and treatment. DoD BACKACHE Inactive Condition MSK back p ain, pt to use Tylenol/Motrin as needed/warming creams, to follow-up if not better in 2-3 weeks. 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 DoD LUMBAGO Active Condition DoD Preventive Medicine Estab Patient Checkup Adult 40-64 Inactive Condition I talked to SMSgt Camilo about all of his screening labs, x-rays, colonoscopy, etc. He is aware of the risks involved with not doing any of these. He declines the offer for me to order a colonoscopy or the occult stool cards. Also declined a screening C DoD SINUSITIS Active Condition DoD pain in the leg (below the knee) Inactive Condition DoD Other Physical Therapy Inactive Condition DoD OSTEOARTHRITIS LOCALIZED PRIMARY - KNEE LEFT Active Condition DoD snoring Active Condition DoD Medications Combined list of outpatient medications from Department of Defense and Veterans Affairs facilities.Medications provided include 1) outpatient medications from the last 15 months, and 2) patient-reported medications. Medication Details Route Status Patient Instructions Prescription Expires Prescription Number Last Dispense Date Ordering Provider Order Date Order Qty Source empaglifloz in 25 mg tablet See Instruct ions, Oral, # 90 EA, 3 total refill(s ), Hard Stop Oral (given by mouth) Complet ed 05/13/2025 5 2024 90.0 Ambulat ory Pharmac y empaglifloz in 25 mg tablet = 1 tab(s), Oral, Daily, # 90 EA, 3 total refill(s ), Soft Stop Oral (given by mouth) Ordered 5 2024 90.0 Ambulat ory Pharmac y FLUoxetine 40 mg capsule See Instruct ions, # 180 EA, 3 total refill(s ), Acute Complet ed 02/13/2024 4 2023 180.0 Ambulat ory Pharmac y FLUoxetine 40 mg capsule See Instruct ions, # 180 EA, 3 total refill(s ), Hard Stop Discont inued 02/20/2024 4 2023 180.0 Ambulat ory Pharmac y FLUoxetine 40 mg capsule = 2 cap(s), Oral, every morning, # 180 EA, 3 total refill(s ), Soft Stop Oral (given by mouth) Ordered 5 2024 180.0 Ambulat ory Pharmac y FLUoxetine 40 mg capsule 80 mg, Oral, every morning, # 180 EA, 3 total refill(s ), Hard Stop Oral (given by mouth) Discont inued 02/10/2025 5 2024 180.0 Ambulat ory Pharmac y flutic/umec lid/vilant 100-62.5-25 mcg inh (60EA) = 1 puff(s), Inhale, Daily, # 180 EA, 3 total refill(s ), Hard Stop Inhala tion (breat he in) Complet ed 06/01/2025 5 2024 180.0 Ambulat ory Pharmac y glipiZIDE 10 mg tablet See Instruct ions, # 90 EA, 2 total refill(s ), Acute Complet ed 01/29/2024 3 2023 90.0 Ambulat ory Pharmac y glipiZIDE 10 mg tablet = 1 tab(s), Oral, Daily, # 90 EA, 3 total refill(s ), Hard Stop Oral (given by mouth) Ordered 07/29/2025 5 2024 90.0 Ambulat ory Pharmac y glipiZIDE 10 mg tablet See Instruct ions, # 90 EA, 2 total refill(s ), Hard Stop Discont inued 07/30/2024 4 2023 90.0 Ambulat ory Pharmac y ibuprofen 800 mg tablet See Instruct ions, Oral, # 270 EA, 3 total refill(s ), Hard Stop Oral (given by mouth) Complet ed 04/29/2025 4 2024 270.0 Ambulat ory Pharmac y ibuprofen 800 mg tablet See Instruct ions, # 270 EA, 3 total refill(s ), Acute Complet ed 11/18/2023 3 2023 270.0 Ambulat ory Pharmac y ipratropium 42 mcg/inh nasal spray [15mL] See Instruct ions, # 15 mL, 5 total refill(s ), Hard Stop Discont inued 06/11/2025 5 2024 15.0 Ambulat ory Pharmac y ipratropium 42 mcg/inh nasal spray [15mL] = 2 spray(s) , Nostril- Both, # 15 mL, 5 total refill(s ), Soft Stop Nostri l-Both (into the nose) Ordered 5 2024 15.0 Ambulat ory Pharmac y Jardiance 25 mg tablet 25 mg, Oral, Daily, # 90 EA, 3 total refill(s ), Hard Stop Oral (given by mouth) Complet ed 05/15/2024 4 2023 90.0 Ambulat ory Pharmac y metFORMIN XR 500 mg/24 hour tablet See Instruct ions, # 360 EA, 2 total refill(s ), Acute Complet ed 01/01/2024 3 2023 360.0 Ambulat ory Pharmac y metFORMIN XR 500 mg/24 hour tablet See Instruct ions, # 360 EA, 3 total refill(s ), Hard Stop Discont inued 12/30/2024 4 2024 360.0 Ambulat ory Pharmac y metFORMIN XR 500 mg/24 hour tablet = 4 tab(s), Oral, every evening, # 360 EA, 3 total refill(s ), Soft Stop Oral (given by mouth) Ordered 5 2024 360.0 Ambulat ory Pharmac y omep[address]ole [address] 20 mg capsule = 1 cap(s), Oral, Daily, # 90 EA, 3 total refill(s ), Hard Stop Oral (given by mouth) Ordered 12/03/2025 5 2024 90.0 Ambulat ory Pharmac y om[address]ole [address] 20 mg capsule See Instruct ions, Oral, Daily, # 90 EA, 3 total refill(s ), Hard Stop Oral (given by mouth) Complet ed 12/03/2024 4 2024 90.0 Ambulat ory Pharmac y om[address]ole [address] 20 mg capsule See Instruct ions, # 90 EA, 2 total refill(s ), Acute Complet ed 11/28/2023 3 2023 90.0 Ambulat ory Pharmac y OZEMPIC (semaglutid e), .25 OR 0.5, PEN INJCTR, SUBCUT, ANDREA NORDISK, 3 ml SYRINGE Cancele d [id number] : 2023 0 Pharmac y [employer] y rosuvastati n 20 mg tablet See Instruct ions, Oral, Daily, # 90 EA, 3 total refill(s ), Hard Stop Oral (given by mouth) Complet ed 12/24/2024 4 2024 90.0 Ambulat ory Pharmac y rosuvastati n 20 mg tablet See dose instruct ions in comments , # 90 EA, 2 total refill(s ), Acute Complet ed 01/01/2024 3 2023 90.0 Ambulat ory Pharmac y rosuvastati n 20 mg tablet = 1 tab(s), Oral, Daily, # 90 EA, 3 total refill(s ), Soft Stop Oral (given by mouth) Ordered 5 2024 90.0 Ambulat ory Pharmac y tamsulosin 0.4 mg capsule See Instruct ions, Oral, # 90 EA, 3 total refill(s ), Hard Stop Oral (given by mouth) Complet ed 05/13/2025 5 2024 90.0 Ambulat ory Pharmac y tamsulosin 0.4 mg capsule 0.4 mg, Oral, Daily, # 90 EA, 3 total refill(s ), Hard Stop Oral (given by mouth) Discont inued 05/15/2024 4 2023 90.0 Ambulat ory Pharmac y tamsulosin 0.4 mg capsule = 1 cap(s), Oral, Daily, # 90 EA, 3 total refill(s ), Soft Stop Oral (given by mouth) Ordered 5 2024 90.0 Ambulat ory Pharmac y tamsulosin 0.4 mg oral capsule TAKE ONE CAPSULE BY MOUTH EVERY DAY, # 90 EA, 3 total refill(s ), Acute Discont inued 06/06/20232022 90.0 Ambulat ory Pharmac y Trelegy Ellipta 100 mcg-62.5 mcg-25 mcg inh [60EA] See Instruct ions, # 180 EA, 3 total refill(s ), Hard Stop Complet ed 04/09/2024 4 2023 180.0 Ambulat ory Pharmac y Trulicity Pen 0.75 mg/0.5 mL [4EA=2mL] See dose instruct ions in comments , # 2 mL, 10 total refill(s ), Acute Discont inued 06/05/2023 3 2022 2.0 Ambulat ory Pharmac y Trulicity Pen 1.5 mg/0.5 mL [4EA=2mL] See Instruct ions, # 2 mL, 0 total refill(s ), Hard Stop Discont inued 07/04/2023 3 2022 2.0 Ambulat ory Pharmac y Trulicity Pen 3 mg/0.5 mL [4EA=2mL] See Instruct ions, # 6 mL, 3 total refill(s ), Hard Stop Complet ed 07/02/2024 3 2023 6.0 Ambulat ory Pharmac y Trulicity Pen 4.5 mg/0.5 mL [4EA=2mL] See Instruct ions, # 2 mL, 3 total refill(s ), Hard Stop Notes: refriger ate Complet ed 10/06/2024 4 2023 2.0 Ambulat ory Pharmac y Allergies, Adverse Reactions, Alerts Combined list of allergies from Department of Defense and Veterans Affairs facilities. It does not include entries that were removed or entered in error. Substance Category Reaction Severity Reaction type Status Date Reported Comments Source doxycycline Propensity to adverse reactions to drug Unknown Active 4 RASH Unknown Organizat ion ERYTHROMYCIN (ERYTHROMYCIN BASE/ETHANOL) Drug allergy (disorder) Unknown active [address] [place] [address] Maurice JONES ([facility] erythromycin Propensity to adverse reactions to drug Unknown Active 4 RASH Unknown Organizat ion VIBRAMYCIN (DOXYCYCLINE HYCLATE) Drug allergy (disorder) Unknown active [address] [place] [address] Maurice JONES ([facility]) Immunizations Combined list of available immunizations from the Department of Defense and Veterans Affairs facilities. 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 Status Comments Source COVID Vaccine Pfizer 2020 208 PFIZER complet ed COVID Vaccine Pfizer 09/23/21 Given Ambulat ory Pharmac y COVID-19, mRNA, LNP-S, PF, 30 mcg/0.3 mL dose 2020 [id number] by [employer] (PFR) Not Given COVID-19, mRNA, LNP-S, PF, 30 mcg/0.3 mL dose DoD influenza, high-dose seasonal, quad, pf 2020 197 sanofi pasteur complet ed influenza , high-dose seasonal, quad, pf 08/15/21 Given Ambulat ory Pharmac y influenza, high-dose, quadrivalent 2020 SUNDAY, () Not Given influenza , high-dose , quadrival ent DoD zoster vaccine, inactivated 2018 187 GlaxoSmithKli ne complet ed zoster vaccine, inactivat ed 09/25/19 Given Ambulat ory Pharmac y zoster recombinant 2018 ALUL, () Not Given zoster recombina nt DoD influenza, seasonal,high dose-pf 2018 135 sanofi pasteur complet ed influenza , seasonal, high dose-pf 07/27/19 Given Ambulat ory Pharmac y influenza, injectable, quadrivalent- pf 2017 150 Seqirus complet ed influenza , injectabl e, quadrival ent-pf 07/15/18 Given Ambulat ory Pharmac y zoster vaccine live 2015 121 Merck & Company Inc complet ed zoster vaccine live 10/15/16 Given Ambulat ory Pharmac y influenza, injectable, quadrivalent- pf 2015 150 GlaxoSmithKli ne complet ed influenza , injectabl e, quadrival ent-pf 08/17/16 Given Ambulat ory Pharmac y influenza, injectable, quadrivalent, preservative free 2015 ALUL, () Not Given influenza , injectabl e, quadrival ent, preservat ernie free DoD influenza, injectable, quadrivalent, preservative free 2014 ALUL, () Not Given influenza , injectabl e, quadrival ent, preservat ernie free DoD tetanus, diphtheria, acellular pertu is 2008 zBrandi ht Arm [id number] sanofi pasteur complet ed tetanus, diphtheri a, acellular pertussis 11/17/08 Given Ambulat ory Pharmac y tetanus, diphtheria, acellular pertu is 2008 [id number] 115 sanofi pasteur complet ed tetanus, diphtheri a, acellular pertussis 11/17/08 Given Ambulat ory Pharmac y tetanus toxoid, reduced diphtheria toxoid, and acellular pertu is vaccine, adsorbed 1 2008 Unknown, Provider [id number] Sanofi Pasteur ([facility]) complet ed tetanus toxoid, reduced diphtheri a toxoid, and acellular pertussis vaccine, adsorbed DoD influenza virus vaccine,split 2007 zzLef t Arm [id number] 15 sanofi pasteur complet ed influenza virus vaccine,s plit 11/14/07 Given Ambulat ory Pharmac y influenza virus vaccine,split 2007 [id number] 15 sanofi pasteur complet ed influenza virus vaccine,s plit 11/14/07 Given Ambulat ory Pharmac y influenza virus vaccine, split virus (incl. purified surface antigen)-reti red CODE 1 2007 Unknown, Provider [id number] 15 Sanofi Pasteur ([facility]) complet ed influenza virus vaccine, split virus (incl. purified surface antigen)- retired CODE DoD influenza virus vaccine,split 2006 [id number] 15 sanofi pasteur complet ed influenza virus vaccine,s plit 12/07/06 Given Ambulat ory Pharmac y influenza virus vaccine,split 2006 [id number] 15 sanofi pasteur complet ed influenza virus vaccine,s plit 12/07/06 Given Ambulat ory Pharmac y influenza virus vaccine, split virus (incl. purified surface antigen)-reti red CODE 1 2006 [id number] 15 Sanofi Pasteur ([facility]) complet ed influenza virus vaccine, split virus (incl. purified surface antigen)- retired CODE DoD influenza virus vaccine,split 2004 [id number] 15 sanofi pasteur complet ed influenza virus vaccine,s plit 09/08/05 Given Ambulat ory Pharmac y influenza virus vaccine, split virus (incl. purified surface antigen)-reti red CODE 1 2004 [id number] 15 Sanofi Pasteur ([facility]) complet ed influenza virus vaccine, split virus (incl. purified surface antigen)- retired CODE DoD typhoid vaccine, inactivated 2004 [id number] 101 sanofi pasteur complet ed typhoid vaccine, inactivat ed 11/11/04 Given Ambulat ory Pharmac y typhoid vaccine, inactivated 2004 [id number] 101 sanofi pasteur complet ed typhoid vaccine, inactivat ed 11/11/04 Given Ambulat ory Pharmac y typhoid vaccine, parenteral, other than acetone-kille d, dried 0 2004 [id number] 41 Sanofi Pasteur ([facility]) complet ed typhoid vaccine, parentera l, other than acetone-k illed, dried DoD anthrax vaccine 2003 [id number] [employer] complet ed anthrax vaccine 05/13/04 Given Ambulat ory Pharmac y anthrax vaccine 2003 [id number] [employer] complet ed anthrax vaccine 05/13/04 Given Ambulat ory Pharmac y anthrax vaccine 6 2003 [id number] [employer] [place] ([facility]) complet ed anthrax vaccine DoD anthrax vaccine 2002 [id number] [employer] complet ed anthrax vaccine 10/09/03 Given Ambulat ory Pharmac y tuberculin purified protein derivative 2002 zzLef t Arm [id number] 96 sanofi pasteur complet ed Patient Tolerance : Negative Ambulat ory Pharmac y influenza virus vaccine, whole virus 2002 [id number] [employer] ls complet ed influenza virus vaccine, whole virus 10/09/03 Given Ambulat ory Pharmac y influenza virus vaccine, whole virus 2002 [id number] [employer] complet ed influenza virus vaccine, whole virus 10/09/03 Given Ambulat ory Pharmac y tuberculin purified protein derivative 2002 [id number] 96 sanofi pasteur complet ed tuberculi n purified protein derivativ e 10/09/03 Given Ambulat ory Pharmac y influenza virus vaccine, whole virus 0 2002 [id number] 16 [employer] (PW[facility]) complet ed influenza virus vaccine, whole virus DoD anthrax vaccine 5 2002 [id number] [employer] [place] ([facility]) complet ed anthrax vaccine DoD tuberculin skin test; purified protein derivative solution, intradermal 1 2002 Unknown, Provider [id number] 96 Sanofi Pasteur ([facility]) complet ed tuberculi n skin test; purified protein derivativ e solution, intraderm al DoD anthrax vaccine 2002 [id number] [employer] complet ed anthrax vaccine 11/14/02 Given Ambulat ory Pharmac y typhoid vaccine, inactivated 2002 [id number] sanofi pasteur complet ed typhoid vaccine, inactivat ed 11/14/02 Given Ambulat ory Pharmac y anthrax vaccine 2002 [id number] [employer] complet ed anthrax vaccine 11/14/02 Given Ambulat ory Pharmac y anthrax vaccine 4 2002 [id number] [employer] [place] ([facility]) complet ed anthrax vaccine DoD typhoid vaccine, parenteral, other than acetone-kille d, dried 0 2002 [id number] 41 Sanofi Pasteur ([facility]) complet ed typhoid vaccine, parentera l, other than acetone-k illed, dried DoD tuberculin purified protein derivative 2001 zzLef t Arm [id number] 96 sanofi pasteur complet ed Patient Tolerance : Negative Ambulat ory Pharmac y tuberculin purified protein derivative 2001 [id number] 96 sanofi pasteur complet ed tuberculi n purified protein derivativ e 09/05/02 Given Ambulat ory Pharmac y tuberculin skin test; purified protein derivative solution, intradermal 1 2001 Unknown, Provider [id number] 96 Sanofi Pasteur ([facility]) complet ed tuberculi n skin test; purified protein derivativ e solution, intraderm al DoD meningococcal polysaccharid e (MPSV4) 1999 [id number] 32 sanofi pasteur complet ed meningoco ccal polysacch aride (MPSV4) 03/23/00 Given Ambulat ory Pharmac y meningococcal polysaccharid e (MPSV4) 1999 [id number] 32 sanofi pasteur complet ed meningoco ccal polysacch aride (MPSV4) 03/23/00 Given Ambulat ory Pharmac y meningococcal polysaccharid e vaccine (MPSV4) 0 1999 [id number] 32 Sanofi Pasteur ([facility]) complet ed meningoco ccal polysacch aride vaccine (MPSV4) DoD anthrax vaccine 1999 [id number] [employer] complet ed anthrax vaccine 01/13/00 Given Ambulat ory Pharmac y anthrax vaccine 1999 [id number] [employer] complet ed anthrax vaccine 01/13/00 Given Ambulat ory Pharmac y anthrax vaccine 3 1999 [id number] 24 [employer] [place] ([facility]) complet ed anthrax vaccine DoD anthrax vaccine 1999 [id number] [employer] complet ed anthrax vaccine 12/30/99 Given Ambulat ory Pharmac y anthrax vaccine 1999 [id number] [employer] complet ed anthrax vaccine 12/30/99 Given Ambulat ory Pharmac y anthrax vaccine 2 1999 [id number] [employer] [place] ([facility]) complet ed anthrax vaccine DoD anthrax vaccine 1999 [id number] [employer] complet ed anthrax vaccine 12/16/99 Given Ambulat ory Pharmac y anthrax vaccine 1 1999 [id number] [employer] [place] ([facility]) complet ed anthrax vaccine DoD influenza virus vaccine, whole virus 1998 [id number] [facility] complet ed influenza virus vaccine, whole virus 08/19/99 Given Ambulat ory Pharmac y influenza virus vaccine, whole virus 1998 [id number] [facility] complet ed influenza virus vaccine, whole virus 08/19/99 Given Ambulat ory Pharmac y influenza virus vaccine, whole virus 0 1998 [id number] 16 [facility] ([facility]) complet ed influenza virus vaccine, whole virus DoD yellow fever vaccine 1998 [id number] sanofi pasteur complet ed yellow fever vaccine 07/23/99 Given Ambulat ory Pharmac y yellow fever vaccine 1998 [id number] sanofi pasteur complet ed yellow fever vaccine 07/23/99 Given Ambulat ory Pharmac y yellow fever vaccine 0 1998 [id number] Sanofi Pasteur ([facility]) complet ed yellow fever vaccine DoD hepatitis A adult vaccine 1998 [id number] [employer] complet ed hepatitis A adult vaccine 05/20/99 Given Ambulat ory Pharmac y hepatitis A adult vaccine 1998 [id number] 52 [employer] Inc complet ed hepatitis A adult vaccine 05/20/99 Given Ambulat ory Pharmac y hepatitis A vaccine, adult dosage 2 1998 [id number] Merck ([facility]D) complet ed hepatitis A vaccine, adult dosage DoD influenza virus vaccine, whole virus [id number] [facility] complet ed influenza virus vaccine, whole virus 09/11/98 Given Ambulat ory Pharmac y influenza virus vaccine, whole virus [id number] [facility] complet ed influenza virus vaccine, whole virus 09/11/98 Given Ambulat ory Pharmac y influenza virus vaccine, whole virus 0 [id number] 16 [facility] (CON) complet ed influenza virus vaccine, whole virus DoD influenza virus vaccine, whole virus 1996 16 complet ed influenza virus vaccine, whole virus 09/04/97 Given Ambulat ory Pharmac y influenza virus vaccine, whole virus 0 1996 16 () complet ed influenza virus vaccine, whole virus DoD tetanus-dipht h toxoids (Td) adult/adol 1996 09 Unknown complet ed tetanus-d iphth toxoids (Td) adult/ado l 08/21/97 Given Ambulat ory Pharmac y tetanus-dipht h toxoids (Td) adult/adol 1996 09 Unknown complet ed tetanus-d iphth toxoids (Td) adult/ado l 08/21/97 Given Ambulat ory Pharmac y tetanus and diphtheria toxoids, adsorbed, preservative free, for adult use (2 Lf of tetanus toxoid and 2 Lf of diphtheria toxoid) 0 1996 09 Unknown (UNK) comple t ed tetanus and diphtheri a toxoids, adsorbed, preservat ernie free, for adult use (2 Lf of tetanus toxoid and 2 Lf of diphtheri a toxoid) DoD typhoid, parenteral, AKD 1996 53 complet ed typhoid, parentera l, AKD 08/04/97 Given Ambulat ory Pharmac y typhoid, parenteral, AKD 1996 53 complet ed typhoid, parentera l, AKD 08/04/97 Given Ambulat ory Pharmac y typhoid vaccine, parenteral, acetone-kille d, dried ([place] ) 2 1996 53 () complet ed typhoid vaccine, parentera l, acetone-k illed, dried ([place] ) DoD tetanus-dipht h toxoids (Td) adult/adol 1989 09 complet ed tetanus-d iphth toxoids (Td) adult/ado l 02/02/90 Given Ambulat ory Pharmac y tetanus-dipht h toxoids (Td) adult/adol 1989 09 complet ed tetanus-d iphth toxoids (Td) adult/ado l 02/02/90 Given Ambulat ory Pharmac y tetanus and diphtheria toxoids, adsorbed, preservative free, for adult use (2 Lf of tetanus toxoid and 2 Lf of diphtheria toxoid) 0 1989 09 () complet ed tetanus and diphtheri a toxoids, adsorbed, preservat ernie free, for adult use (2 Lf of tetanus toxoid and 2 Lf of diphtheri a toxoid) DoD poliovirus vaccine, live, oral 1979 02 complet ed polioviru s vaccine, live, oral 04/04/80 Given Ambulat ory Pharmac y poliovirus vaccine, live, oral 1979 02 complet ed polioviru s vaccine, live, oral 04/04/80 Given Ambulat ory Pharmac y trivalent poliovirus vaccine, live, oral 0 1979 02 () complet ed trivalent polioviru s vaccine, live, oral DoD mumps-rubella virus vaccine 1978 38 complet ed mumps-rub ivette virus vaccine 02/21/79 Given Ambulat ory Pharmac y mumps-rubella virus vaccine 1978 38 complet ed mumps-rub ivette virus vaccine 02/21/79 Given Ambulat ory Pharmac y rubella and mumps virus vaccine 0 1978 38 Transcribed (TRS) complet ed rubella and mumps virus vaccine DoD rubella virus vaccine 0 1978 06 Transcribed (TRS) Not Given rubella virus vaccine DoD measles, mumps and rubella virus vaccine 0 1978 03 () Not Given measles, mumps and rubella virus vaccine DoD Encounters Combined list of: 1) Encounters from Department of Veterans Affairs facilities going backup to the last 18 months, not all VA inpatient encounters are included; 2) Encounters from the Department of Defense facilities going backup to 280 months. Location Location Details Encounter Type Encounter Number Reason For Visit Attending Provider ADM Date DC Date Status Disposition Source [address] [place] [address] Maurice JONES [facility] Non-GME FHI1) OUTPATIENT [id number] left knee pain JUSTIN MADRID 03/06 Released w/o Limitations [address] [place] [address] Maurice JONES [facility]F amily Practic e Non-GME FHI1) [address] [place] [address] Maurice Ravindra [facility]Pt Neuromusc uloskelet al Clinic) OUTPATIENT [id number] left knee pain KARSON JOHN 03/07 Released w/o Limitations [address] [place] [address] Maurice JONES [facility]P t Neuromu sculosk eletal Clinic) [address] [place] [address] Maurice JONES [facility] Non-GME FHI2) OUTPATIENT [id number] flu symptom s x 3 days JERRELL GUZMÁN 11/28 Sick at Home/Quarter s [address] [place] [address] Maurice JONES [facility]F amily Practic e Non-GME FHI2) [address] [place] [address] Maurice Ravindra [facility] Non-GME FHI2) OUTPATIENT [id number] possibl e sinus infecti on-faci al pain on left side-gr een drainag e-conge stion GUZMÁNJERRELL Ivan 12/05 Released w/o Limitations [address] [place] [address] Group Maurice JONES ([facility] [place] am[facility] Practic e Non-GME FHI2) [address] [place] [address] Maurice DEEB ([facility] Non-GME FHI2) OUTPATIENT [id number] MID BACK PAIN X 2 DAYS FROY RAMIREZ 05/22 Released w/o Limitations [address] [place] [address] Group Maurice DEEB ([facility]F amily Practic e Non-GME FHI2) [address] [place] [address] Maurice DEEB ([facility] Non-GME FHI2) OUTPATIENT [id number] F/U DEPRESS ION--RE [facility] 10/16 Released w/o Limitations [address] [place] [address] Maurice DEEB ([facility]F amily Practic e Non-GME FHI2) [address] [place] [address] Maurice DEEB [facility] Non-GME FHI2) OUTPATIENT [id number] f/u depress ion meds GUZMÁNJERRELL Ivan 11/13 Released w/o Limitations [address] [place] [address] Maurice JONES ([facility]F amily Practic e Non-GME FHI2) [address] [place] [address] Maurice DEEB [facility] Non-GME FHI2) OUTPATIENT [id number] GUZMÁNJERRELL Ivan 01/02 Released w/o Limitations [address] [place] [address] Maurice JONES ([facility]F amily Practic e Non-GME FHI2) [address] [place] [address] Maurice DEEB [facility]Opt ometry) OUTPATIENT [id number] FULL EXAM TIFFANIE JOHNSON 01/23 Released w/o Limitations [address] [place] [address] Group Maurice DEEB ([facility]O ptometr y) [address] [place] [address] Maurice DEEB [facility] Non-GME FHI2) OUTPATIENT [id number] evaluat e cholest aisha medicat ion GUZMÁNJERRELL Ivan 01/25 Released w/o Limitations [address] [place] [address] Maurice DEEB ([facility]F amily Practic e Non-GME FHI2) [address] [place] [address] Maurice JONES ([facility]Jeff matology) OUTPATIENT [id number] poss skin ca on ear KIEL HAYES 02/06 Released w/o Limitations [address] [place] [address] Maurice DEEB ([facility])(D ermatol ogy) [address] [place] [address] Maurice DEEB ([facility]) OUTPATIENT [id number] black stools ROJAS ARZOLA 11/11 Released w/o Limitations [address] [place] [address] Maurice DEEB ([facility]) [address] [place] [address] Maurice DEEB [facility] Non-GME FHI1) OUTPATIENT [id number] DIZZINE SS YURITAMMY Alina 11/25 Released w/o Limitations [address] [place] [address] Maurice DEEB ([facility]F amily Practic e Non-GME FHI1) [address] [place] [address] Maurice B [facility]Opt ometry) OUTPATIENT [id number] eye exam TIFFANIE JOHNSON 12/09 Released w/o Limitations [address] [place] [address] Maurice DEEB [facility]O ptometr y) [address] [place] [address] Maurice DEEB [facility] Non-GME FHI1) TELE CONSULT [id number] medicat ion refill KIMO SCHWARTZ 01/[address] [place] [address] Maurice DEEB [facility]F amily Practic e Non-GME FHI1) [address] [place] [address] [employer] [facility] Non-GME FHI2) OUTPATIENT [id number] f/u HLP JERRELL GUZMÁN 02/21 Released w/o Limitations [address] [place] [address] Maurice DEEB [facility]F amily Practic e Non-GME FHI2) [address] [place] [address] Maurice B [facility] Non-GME FHI2) OUTPATIENT [id number] sinus problem s JERRELL GUZMÁN 06/26 Released w/o Limitations [address] [place] [address] Maurice DEEB ([facility]F amily Practic e Non-GME FHI2) [address] [place] [address] Maurice B [facility]) OUTPATIENT [id number] ANOMALI ES OF SKIN KIEL HAYES L 07/11 Released w/o Limitations [address] [place] [address] Maurice DEEB ([facility]D ermatol ogy) [address] [place] [address] [employer] [facility] Non-GME FHI1) TELE CONSULT [id number] results - SAMI Lovett 07/[address] [place] [address] Maurice B [facility]F amily Practic e Non-GME FHI1) [address] [place] [address] Maurice B [facility]Pul monary Functions ) OUTPATIENT [id number] CASTILLO Bell 07/15 Released w/o Limitations [address] [place] [address] Maurice B [facility]P ulmonar y Functio ns) [address] [place] [address] Maurice B [facility] Non-GME FHI1) TELE CONSULT [id number] results - ANDRZEJ Anderson 07/[address] [place], [place] [address]B [facility]F amily Practic e Non-GME FHI1) [address] [place], [place] [address]B [facility] Non-GME FHI2) OUTPATIENT [id number] PFT follow up per MICHEL Saxena 07/25 Released w/o Limitations [address] [place] [address] Maurice B [facility]F amily Practic e Non-GME FHI2) [address] [place] [address] Maurice B [facility]) OUTPATIENT [id number] laser Tx KIEL Mcclellan 07/28 Released w/o Limitations [address] [place] [address] Maurice B [facility]D ermatol ogy) [address] [place] [address] [employer] [facility]) OUTPATIENT [id number] blue light and laser tx KIEL HAYES 08/22 Released w/o Limitations [address] [place] [address] [employer] [facility]D ermatol ogy) [address] [place] [address] [employer] [facility]) OUTPATIENT [id number] f/u blue light KIEL HAYES 09/17 Released w/o Limitations [address] [place] [address] [employer] [facility]D ermatol ogy) [address] [place] [address] Maurice B [facility] Non-GME FHI1) OUTPATIENT [id number] ; stopped up rt ear BERTHA MENARD 11/14 Released w/o Limitations [facility] Maurice JONES ([facility]F amily Practic e Non-GME FHI1) [facility] Outpatient Encounter [id number] 07/14 [facility] Procedures Combined list of: 1) Procedures from Department of [facility] Affairs facilities going back up to thelast 18 months, not all VA non-surgical procedures are included; 2) All procedures from the Department of Defense facilities. Procedure Procedure Type Code Date Perfomer Comments Sourc e DESTRUCTION OF CUTANEOUS VASCULAR PROLIFERATIVE LESIONS (EG, LASER TECHNIQUE); OVER 50.0 SQ CM 2006 DoD DESTRUCTION OF CUTANEOUS VASCULAR PROLIFERATIVE LESIONS (EG, LASER TECHNIQUE); OVER 50.0 SQ CM 2006 DoD DESTRUCTION (EG, LASER SURGERY, ELECTROSURGERY, CRYOSURGERY, CHEMOSURGERY, SURGICAL CURETTEMENT), OF BENIGN LESIONS OTHER THAN SKIN TAGS OR CUTANEOUS VASCULAR PROLIFERATIVE LESIONS; UP TO 14 LESIONS 2006 DoD RESPIRATORY FLOW VOLUME LOOP 2006 DoD FITTING OF SPECTACLES, EXCEPT FOR APHAKIA; MONOFOCAL 2006 DoD BIOPSY OF SKIN, SUBCUTANEOUS TISSUE AND/OR MUCOUS MEMBRANE (INCLUDING SIMPLE CLOSURE), UNLESS OTHERWISE LISTED; SINGLE LESION 2005 DoD FITTING OF SPECTACLES, EXCEPT FOR APHAKIA; BIFOCAL 2005 DoD THERAPEUTIC PROCEDURE, 1 OR MORE AREAS, EACH 15 MINUTES; THERAPEUTIC EXERCISES TO DEVELOP STRENGTH AND ENDURANCE, RANGE OF MOTION AND FLEXIBILITY 2003 DoD CHIROPRACTIC MANIPULATIVE TREATMENT (CMT); SPINAL, 1-2 REGIONS 2002 DoD CARDIOVASCULAR STRESS TEST USING MAXIMAL OR SUBMAXIMAL TREADMILL OR BICYCLE EXERCISE,CONTINUOUS ELECTROCARDIOGRAPHIC MONITORING,AND/OR PHARMACOLOGICAL STRESS;W SUPERVISION,INTERPRETAT ION AND REPORT 2001 DoD Aminolevulinic acid HCl for topical administration, 20%, single unit dosage form (354 mg) 2006 KIEL HAYES [facility] Photodynamic Therapy By External Light 2006 KIEL HAYES DoD Destruction Of Cutaneous Vascular Lesions Over 50.0 Sq Cm Destruction Of Cutaneous Vascular Lesions Over 50.0 Sq Cm 60001 2006 KIEL HAYES DoD Destruction Of Cutaneous Vascular Lesions Over 50.0 Sq Cm Destruction Of Cutaneous Vascular Lesions [place] 50.0 Sq Cm [address]353 2006 KIEL HAYES [facility] Pulmonary Function Tests Flow Volume Loop Pulmonary [place] [address] 2006 CASTILLO PADGETT [facility] Destruction Of Benign Lesion By Cryosurgery 2006 KIEL HAYES [facility] Determination Of Refractive State Determination Of Refractive State 60403 2006 TIFFANIE JOHNSON [employer] Fitting Monofocals (Not For Aphakia) [employer] Fitting Monofocals (Not For Aphakia) 51295 2006 TIFFANIE JOHNSON Visual Levine Test Intermediate Examination Visual Levine Test Intermediate Examination 15405 2006 TIFFANIE JOHNSON Ophthalmological Prior Patient Start Comprehensive Care Ophthalmological Prior Patient Start Comprehensive Care 74033 2006 TIFFANIE JOHNSON Determination Of Refractive State Determination Of Refractive State 68047 2005 TIFFANIE JOHNSON [employer] Fitting Bifocals (Not For Aphakia) [employer] Fitting Bifocals (Not For Aphakia) 94662 2005 TIFFANIE JOHNSON Ophthalmological New Patient Start Comprehensive Care Ophthalmological New Patient Start Comprehensive Care 36563 2005 TIFFANIE JOHSNON Visual Levine Test Intermediate Examination Visual Levine Test Intermediate Examination 93234 2005 TIFFANIE JOHNSON Physical Medicine Physical Therapy Evaluation Physical Medicine Physical Therapy Evaluation 12959 2003 KARSON JOHN Exercises A isted Exercises For ROM Exercises Assisted Exercises For ROM 58576 2003 KARSON JOHN No data available for this section Ambulatory Pharmacy Social History Combined list of available smoking, tobacco, and other social history from Department of Defense and Veterans Affairs facilities. Social History Type Response Date Comment Sourc e This section is an empty social history section. DoD Assessment and Plan Combined list of future care activities from Department of Defense and Veterans Affairs facilities (e.g., assessment and plan notes, appointments, orders, and referrals). Additional future care activities may be listed in the Plan of Care section. Result Assessment and Plan Date Source Assessment and Plan No data available for this section 06/21/2025 Ambulatory Pharmacy Functional Status Combined list of recent functional and cognitive assessments recorded at Department of Defense and Veterans Affairs (VA).VA Functional Wetzel Measurement (FIM) Scale: 1 = Total Assistance (Subject = 0% +), 2 = Maximal Assistance (Subject = 25% +), 3 = Moderate Assistance (Subject = 50% +), 4 = Minimal Assistance (Subject = 75% +), 5 = Supervision, 6 = Modified Wetzel (Device), 7 = Complete Wetzel (Timely, Safely). Assessment Date/Time Source Assessment Type Assessment Skill Assessment Score Assessment Details No data available for this section
[2025-06-21 13:07] LABS: Alanine Aminotransferase 25 U/L (6-50); Albumin Level 4.7 g/dL (3.5-5.1); Alkaline Phosphatase 66 U/L (38-126); Anion Gap 10 mmol/L (4-12); Aspartate Amino Transferase 30 U/L (17-59); Bilirubin,Total 1.0 mg/dL (0.2-1.3); Blood Urea Nitrogen 11 mg/dL (9-20); Calcium 9.4 mg/dL (8.4-10.2); Carbon Dioxide 25 mmol/L (22-30); Chloride 103 mmol/L (98-107); Estimated Glomerular Filt Rate > 60; Glucose 104 mg/dL (65-110); Potassium 4.9 mmol/L (3.4-5.0); Sodium 138 mmol/L (137-145); Total Protein 7.9 g/dL (6.3-8.2)
[2025-06-21 22:30] LABS: Hemoglobin A1C 6.2 % (<5.7)
== END 2025-06-21 11:54 | disposition home or self-care (01) ==
LOC: ANHLAB 11:54
PROVIDERS: PCP Family Medicine; Visit Provider Family Medicine
DX: E11.65 Type 2 diabetes mellitus with hyperglycemia (principal)
CPT/HCPCS: 36415; 80053; 83036

== ENCOUNTER 2025-10-14 13:56 | Outpatient (CLI) | payer MEDICARE, OTHER, SELFPAY ==
[2025-10-14 14:27] LABS: Hematocrit 44.8 % (42.0-52.0); Hemoglobin 15.3 g/dL (14.0-18.0); Mean Corpuscular HGB Conc 34.2 g/dl (32-36); Mean Corpuscular Hemoglobin 29.8 pg (26-34); Mean Corpuscular Volume 87.3 fl (80-100); Platelet Count Result 220 k/mm3 (150-375); Red Blood Count 5.13 M/mm3 (4.6-6.20); White Blood Count 8.4 K/mm3 (4.5-10.0)
[2025-10-14 14:28] LABS: Add Urine Microscopic? NO; Appearance Urine Clear (Clear); Glucose Urine UA 2+ mg/dL (Negative); Leukocyte Esterase Ur Negative LEU/UL (Negative); Nitrate Urine Negative (Negative); Specific Grav Ur 1.014 (1.001-1.035)
[2025-10-14 14:39] LABS: Alanine Aminotransferase 22 U/L (6-50); Albumin Level 4.5 g/dL (3.5-5.1); Alkaline Phosphatase 87 U/L (38-126); Anion Gap 7 mmol/L (4-12); Aspartate Amino Transferase 30 U/L (17-59); Bilirubin,Total 0.6 mg/dL (0.2-1.3); Blood Urea Nitrogen 9 mg/dL (9-20); Calcium 9.6 mg/dL (8.4-10.2); Carbon Dioxide 26 mmol/L (22-30); Chloride 102 mmol/L (98-107); Cholesterol 91 mg/dL (0-200); Estimated Glomerular Filt Rate > 60; Glucose 100 mg/dL (65-110); HDL Direct 43 mg/dL; Potassium 4.2 mmol/L (3.4-5.0); Sodium 135 mmol/L (137-145); Total Protein 7.6 g/dL (6.3-8.2); Triglycerides 80 mg/dL (<150)
[2025-10-14 15:15] LABS: Prostate Specific Antigen 0.8 ng/mL (< OR = 4.0); Thyroid Stimulating Hormone 7.500 uIU/mL (0.465-4.680)
[2025-10-14 15:19] LABS: Hemoglobin A1C 6.4 % (<5.7)
[2025-10-14 16:00] LABS: MALB Creatinine Ratio 31.7 mg/g (0-30)
== END 2025-10-14 13:57 | disposition home or self-care (01) ==
PROVIDERS: PCP Family Medicine; Visit Provider Family Medicine
DX: E78.00 Pure hypercholesterolemia, unspecified (principal); E11.65 Type 2 diabetes mellitus with hyperglycemia; E11.42 Type 2 diabetes mellitus with diabetic polyneuropathy; R35.1 Nocturia
CPT/HCPCS: 36415; 80053; 80061; 81003; 82043; 83036; 84153; 84443; 85027